=== PATIENT | male | born 1930 | race Caucasian/White ===

== ENCOUNTER → 2016-08-04 | Outpatient (CLI) | payer MEDICARE, BC ==
[2016-08-04 07:05] LABS: BASOPHILS % (AUTO) 0.1 % (0-2); EOSINOPHILS # (AUTO) 0.4 T/MM3 (0-0.5); EOSINOPHILS % (AUTO) 5.8 % (0-4); HCT - HEMATOCRIT 34.9 % (41-53); HGB - HEMOGLOBIN 11.9 GM/DL (13.5-17.5); LYMPHOCYTES # (AUTO) 0.9 T/MM3 (1-4.8); LYMPHOCYTES % (AUTO) 12.1 % (23-45); MEAN CORPUSCULAR HGB 36.5 UUG (26-34); MEAN CORPUSCULAR HGB CONC(MCHC 34.1 GM/DL (31-37); MEAN CORPUSCULAR VOLUME 107.1 UM3 (80-100); MEAN PLATELET VOLUME 10.4 UM3 (9.4-12.4); MONOCYTES # (AUTO) 0.5 T/MM3 (0-0.8); MONOCYTES % (AUTO) 7.2 % (0-9.0); NEUTROPHILS #(AUTO)-ABSOLUTE 5.3 T/MM3 (1.8-7.7); NEUTROPHILS % (AUTO) 74.8 % (33-66); RED BLOOD COUNT 3.26 M/MM3 (4.50-5.90); WBC - WHITE BLOOD COUNT 7.1 T/MM3 (4.5-11.0)
[2016-08-04 07:15] LABS: ANION GAP 10 MEQ/L (5-15); BUN/CREATININE RATIO 26 RATIO (6-26); CALCIUM 9.3 MG/DL (8.4-10.2); CHLORIDE 100 MEQ/L (98-107); CO2 - CARBON DIOXIDE 31 MEQ/L (22-30); GLOMERULAR FILTRATION RATE 71; GLUCOSE 144 MG/DL (75-110); POTASSIUM 4.2 MEQ/L (3.6-5); SODIUM 141 MEQ/L (134-144)
[2016-08-04 07:23] LABS: PROBNP 1100 PG/ML (0-175)
[2016-08-04 10:28] LABS: BLOOD, URINE NEGATIVE (NEGATIVE); COLOR,URINE YELLOW (YELLOW); LEUKOCYTE ESTERASE ,URINE NEGATIVE (NEGATIVE); NITRITE,URINE POSITIVE (NEGATIVE); UROBILINOGEN,URINE 0.2 EU/DL (NORMAL)
[2016-08-04 11:04] LABS: WBC,URINE NONE SEEN /HPF (0-5)
[2016-08-04 11:05] LABS: BACTERIA,URINE 3+ (NEGATIVE); RBC,URINE NONE SEEN /HPF (0-3)
== END ==
LOC: LABNH.PM 00:47
PROVIDERS: ATTEND Family Medicine
DX: I10 Essential (primary) hypertension (principal); R53.1 Weakness; I25.10 Atherosclerotic heart disease of native coronary artery without angina pectoris; N39.0 Urinary tract infection, site not specified
CPT/HCPCS: 36415; 80048; 81001; 83880; 85025; 87086; P9604; 87077; 87186

== ENCOUNTER → 2016-08-11 | Outpatient (CLI) | payer MEDICARE, BC ==
[2016-08-13 02:13] LABS: LDL CHOLESTEROL,CALCULATED 70.2 (66-159); VLDL CHOLESTEROL 12.8 MG/DL (0-28)
== END ==
LOC: LABNH.PM 01:32
PROVIDERS: ATTEND Internal Medicine Cardiovascular Disease
DX: E78.5 Hyperlipidemia, unspecified (principal)
CPT/HCPCS: 36415; 80061; P9604

== ENCOUNTER → 2016-08-24 | Outpatient (CLI) | payer MEDICARE, BC ==
[~2016-08-24] MED LIST: ASPI-557 PO; IBUP-1724 PO; LANS15TA3 PO; NICO1PAT49 TOP; OXYC-541 PO; OXYC5CAP3 PO; POLY255P2 PO; THYR60TA2 PO
[2016-08-25 15:09] LABS: BLOOD, URINE NEGATIVE (NEGATIVE); COLOR,URINE YELLOW (YELLOW); LEUKOCYTE ESTERASE ,URINE NEGATIVE (NEGATIVE); NITRITE,URINE NEGATIVE (NEGATIVE); UROBILINOGEN,URINE 0.2 EU/DL (NORMAL)
[2016-08-25 15:19] LABS: BACTERIA,URINE NONE SEEN (NEGATIVE); RBC,URINE 0-1 /HPF (0-3); WBC,URINE 0-1 /HPF (0-5)
[2016-08-25 15:20] LABS: CALCIUM OXALATE CRYSTALS,UR FEW
== END ==
LOC: LABN.PM 23:59
PROVIDERS: ATTEND Family Medicine
DX: N39.0 Urinary tract infection, site not specified (principal)
CPT/HCPCS: 81001; 87086

== ENCOUNTER 2016-08-26 06:38 | Inpatient (IN) | payer MEDICARE, BC ==
[~2016-08-26] VITALS: Ht 172.7 cm; Wt 64.5 kg
[2016-08-26] VITALS (13 sets, daily range): BP systolic 115–199; BP diastolic 55–93; PULSE 56–101; RESP 16–41; TEMP 98.2–99.8; O2SAT 95–96; Ht 172.7 cm; Wt 64.5 kg
--- NOTE | 2016-08-26 07:01 | NUR ---
DR SWEENEY IN
[2016-08-26] MEDS ORDERED: NICO1PAT49 TOP (07:05)
[2016-08-26] MEDS ORDERED: ASPI-557 PO (07:05)
[2016-08-26] MEDS ORDERED: IBUP-1724 PO (07:05)
[2016-08-26] MEDS ORDERED: POLY255P2 PO (07:05)
--- NOTE | 2016-08-26 07:10 | ERPDOC ---
Departure Impression Impression Referrals: ALTON PARRY MD (Family) Mental Status: Alert, Forgetful, Oriented HPI - Fall/Injury General Chief Complaint: Fall Stated Complaint: FALL, NECK PAIN Time Seen by Provider: 07:00 HPI - Fall/Injury Initial Comments 86-year-old gentleman presents having fallen at the detention this morning. His story is that he must of tangled up in his sheets and next thing he knew he was laying on the floor. He states he doesn't remember what happened for sure. He is brought and c-collar by EMS. Manually cleared and able to move his neck without pain. His daughter came and stated that he actually hit his head, seemed to pass out, and was vomiting. This certainly makes more sense as to why he was transported. He denies a headache, does have a scrape on top of his head. No other concerns or issues at this time. He is quite a character, hard to know when to take him seriously. Allergies: Coded Allergies: No Known Allergies (Unverified , 08/26/16) Past History Past Medical History Pt denies signifigant PMH Surgical History Denies Surgeries Review of Systems ENMT Balance: see HPI GI Upper Abdomen: see HPI Musculoskeletal General: see HPI Neurological General: see HPI All other Systems All Other Systems: Reviewed and Negative Physical Exam General General Nourishment: well nourished, well developed, appears stated age General Body Habitus: well groomed Vitals and Pain First Documented Vital Signs Date Time Temp Pulse Resp B/P Pulse Ox O2 Delivery O2 Flow Rate FiO2 08/26/16 06:42 97.9 104 16 126/61 91 Room Air Weight: Kilograms: 64.400 Height (feet): 5 Height (inches): 7.00 Triage Pain Scale: Normal Exams: Chest/Resp: Clear all jeffers, with good airflow, and symmetry bilaterally CV: Regular rate and rhythm, without murmur or gallop, Pulses 2+ all extremities, capillary refill, <2 seconds all ext., no pedal edema noted Abdomen: Bowel sounds positive, non-distended, no hepatosplenomegaly, masses or bruits noted Neurologic: Patient is alert, cranial nerves, motor/sensory/cerebellar, exams w /o gross deficits, to observation Psychiatric: Patient exhibits, appropriate attention, emotion and affect ENMT (brief) Comments Pupils equal and reactive to light, EOMI. No blood in external auditory canals. Oral pharynx appears normal, poor dentition. Neck nontender, c-collar removed, full range of motion passive and active without pain. Abdomen (brief) Comments Bowel sounds all 4 quadrants, soft abdomen, mild tenderness midepigastric. Differential Diagnoses Considering: Abrasion, Concussion, Contusion, CVA, UTI DAPHNEY SWEENEY MD Aug 26, 2016 07:10
[2016-08-26] MEDS ORDERED: THYR60TA2 PO (07:17)
[2016-08-26] MEDS ORDERED: OXYC5CAP3 PO (07:17)
[2016-08-26] MEDS ORDERED: LANS15TA3 PO (07:17)
[2016-08-26] MEDS ORDERED: OXYC-541 PO (07:18)
--- NOTE | 2016-08-26 07:19 | NUR ---
FAMILY DAUGHTER AT BEDSIDE. PT WAS VOMITING AFTER FALL.
--- NOTE | 2016-08-26 07:29 | NUR ---
TO CT PER CART
--- NOTE | 2016-08-26 07:37 | NUR ---
RETURNED FROM [facility]
[2016-08-26 07:39] LABS: HCT - HEMATOCRIT 32.8 % (41-53); HGB - HEMOGLOBIN 11.3 GM/DL (13.5-17.5); MEAN CORPUSCULAR HGB 36.9 UUG (26-34); MEAN CORPUSCULAR HGB CONC(MCHC 34.5 GM/DL (31-37); MEAN CORPUSCULAR VOLUME 107.2 UM3 (80-100); MEAN PLATELET VOLUME 9.9 UM3 (9.4-12.4); RED BLOOD COUNT 3.06 M/MM3 (4.50-5.90)
--- NOTE | 2016-08-26 07:56 | DI ---
Indication: ITS.REASON: loss of consciousness PROCEDURE: CT HEAD W/O CONTRAST: Encounter: Initial Comparison: None Technique: Axial CT images through the head were performed without contrast. Iterative Reconstruction dose reducing technique was utilized. FINDINGS: The ventricles are significantly dilated, disproportionate to the mild atrophy present. There is no evidence of acute intracranial hemorrhage, midline displacement, or mass effect. There are numerous areas of low attenuation in the white matter which most likely represent changes of chronic microvascular ischemia. The CT attenuation of the brain parenchyma is otherwise normal within the cerebellum, brain stem, and cerebral hemispheres. The tympanic cavities and mastoid air cells are free of appreciable disease. There are no definite fractures of the skull base, calvarium, or visualized portion of the midface. IMPRESSION: 1. No CT evidence of acute traumatic intracranial injury. 2. Disproportionate ventricular dilatation raising concern for normal pressure hydrocephalus. .
--- NOTE | 2016-08-26 07:59 | DI ---
Indication: ITS.REASON: neck pain post-fall PROCEDURE: CT CERVICAL SPINE W/O CONTRAST: Encounter: Initial Comparison: None Technique: Axial CT images through the cervical spine were performed without contrast. Coronal and sagittal reformatted images were also obtained. Automated Exposure Control and Iterative Reconstruction dose reducing techniques were utilized. FINDINGS: The alignment of the cervical spine is straightened. Multilevel degenerative changes are present. There is no evidence of acute fracture or subluxation of the cervical spine. The atlantoaxial articulation, dens, and upper cervical spine demonstrate no subluxation. The paraspinal soft tissues and spinal canal appear unremarkable. IMPRESSION: No acute traumatic abnormality of the cervical spine. .
[2016-08-26 08:03] LABS: BLOOD, URINE 3+ (NEGATIVE); COLOR,URINE YELLOW (YELLOW); LEUKOCYTE ESTERASE ,URINE NEGATIVE (NEGATIVE); NITRITE,URINE NEGATIVE (NEGATIVE)
[2016-08-26 08:07] LABS: ALBUMIN/GLOBULIN RATIO 1.3 RATIO (1.1-2.2); ALKALINE PHOSPHATASE 59 U/L (38-126); ALT (SGPT) 26 U/L (21-72); ANION GAP 16 MEQ/L (5-15); AST (SGOT) 36 U/L (17-59); BUN/CREATININE RATIO 30 RATIO (6-26); CALCIUM 9.6 MG/DL (8.4-10.2); CHLORIDE 106 MEQ/L (98-107); CO2 - CARBON DIOXIDE 24 MEQ/L (22-30); CREATININE 1.4 MG/DL (0.8-1.5); GLOMERULAR FILTRATION RATE 48; GLUCOSE 78 MG/DL (75-110); POTASSIUM 4.3 MEQ/L (3.6-5); SODIUM 146 MEQ/L (134-144)
--- NOTE | 2016-08-26 08:16 | NUR ---
TO [facility] PER CART
[2016-08-26 08:17] LABS: LYMPHOCYTES # (MANUAL) 0.1 T/MM3 (1-4.8); MONOCYTES # (MANUAL) 0.6 T/MM3 (0-0.8); NEUTROPHILS #(MANUAL)-ABSOLUTE 10.3 T/MM3 (1.8-7.7); TOTAL CELLS COUNTED 100 %
[2016-08-26 08:23] LABS: PROLACTIN 9.5 NG/ML
--- NOTE | 2016-08-26 08:34 | NUR ---
RETURNED FROM [facility]
[2016-08-26 08:35] LABS: BACTERIA,URINE 1+ (NEGATIVE); WBC,URINE NONE SEEN /HPF (0-5)
--- NOTE | 2016-08-26 08:40 | NUR ---
MONITOR SR. VS STABLE. PT RESTS COMFORTABLY
--- NOTE | 2016-08-26 08:40 | NUR ---
DR SWEENEY IN
--- NOTE | 2016-08-26 08:41 | DI ---
Indication: ITS.REASON: midepigastric pain PROCEDURE: KUB W/UPRIGHT: Encounter: Initial Comparison: None Findings: The visualized lung bases are clear. There is no free air on the upright view. The bowel gas pattern is nonobstructive and nonspecific. Gas is seen in nondilated small and large bowel to the level of the rectum. Moderate to large amount of stool is seen throughout the colon. Chronic appearing L4 compression fracture. Aortoiliac stent. Cholecystectomy clips. Impression: Nonobstructive nonspecific bowel gas pattern. .
--- NOTE | 2016-08-26 08:42 | DI ---
INDICATION: ITS.REASON: fall PROCEDURE: CHEST 2-VIEWS UPRIGHT (PA \T\ LAT) Encounter: Initial COMPARISON: None FINDINGS: The lungs are clear without evidence of focal abnormal airspace opacity. There is no pleural effusion or pneumothorax. The heart size, mediastinal contours and pulmonary vascularity are within normal limits. Widened right AC joint could be due to old trauma or prior surgery. IMPRESSION: No acute cardiopulmonary disease. .
--- NOTE | 2016-08-26 09:04 | NUR ---
DR SWEENEY IN
--- NOTE | 2016-08-26 09:15 | NUR ---
REPORT TO SINAN OSBORNE
--- NOTE | 2016-08-26 09:30 | NUR ---
PAIGE CULVER IN TO SEE PT
--- NOTE | 2016-08-26 09:40 | NUR ---
TRANSPORT PER CART TO 122. SINAN OSBORNE ASSUMED PT CARE. PT TOLERATED ACTIVITY WELL. MONITOR & VS STABLE
--- NOTE | 2016-08-26 09:40 | NUR ---
Admit Pt arrived to floor at this time. transferred to bed x2 assist from ED cart. Pt denies pain at this time.
[2016-08-26] MEDS: ASPIRIN 81 MG CHEWABLE TABLET PO SCH (10:00)
[2016-08-26] MEDS ORDERED: SALINE FLUSH 10ml SYRINGE ONE (10:08)
[2016-08-26] MEDS ORDERED: IOHEXOL 350 MG/ML 100ml INJECTION ONE (10:08)
[2016-08-26] MEDS ORDERED: NORMAL SALINE 100 ML ONE (10:08)
--- NOTE | 2016-08-26 10:17 | HPPDOC ---
PAIGE KAUR V CARRIER LOADER 08/26/16 0948: HPI - Adult Date DATE: 08/26/16 TIME: 09:40 General Chief Complaint: Fall from bed, Elevated Troponin History of Present Illness Patient is a 86 yr old male who resides at [facility]. It is reported that he fell out of bed this morning and struck his head. Following this he began vomiting and was sent to the ER for further evaluation and treatment. Other evaluation included laboratory studies and radiology studies were performed. WBC count was found to be slightly about 12.0, RBCs 3.06, hemoglobin 11.3, hematocrit 32.8, platelet count 151, neutrophils 86% with a percent bandemia. Sodium is 146, potassium 4.3, BUN 42, creatinine 1.4. D-dimer was found to be elevated at 3393. Initial troponin was elevated at 0.306. Twelve- lead EKG was performed showing some ST changes with questionable depression. A urinalysis was obtained showing 1+ protein, 3+ blood with 1+ bacteria. KUB and chest x-ray were both unremarkable. CT scan of the head did show ventricle dilatation, raising concern for normal pressure hydrocephalus. A CT of the cervical spine was negative for acute fracture. Vital signs reviewed, temperature 97.5, heart rate 104, respiration rate 16, blood pressure 126/61, room air saturations 95%. Review advanced directives and patient does have a active do not resuscitate. Past Medical History Past Medical History History of thyroid cancer Hypertension- not currently on medications Chronic leg pain GERD Former tobacco dependence Surgical History Patient's Surgical History: Left lower extremity surgery, (plates and screws post trauma) Thyroidectomy Current Medications Home Meds Reported Medications Oxycodone HCl/Acetaminophen (Oxycodone-Acetaminophen 5-325) 5-325 Tablet, 1 TAB PO TID Y for PAIN, TAB 08/26/16 Lansoprazole (Prevacid) 15 Mg Tab.rap.dr, 1 TAB PO DAILY, #30 TAB 2 Refills 08/26/16 Thyroid,Pork (Allison Thyroid) 60 Mg Tablet, 1 TAB PO DAILY, #30 TAB 5 Refills 08/26/16 Polyethylene Glycol 3350 (Polyethylene Glycol 3350) 255 Gm Powder, 8.5 GM PO DAILY, #527 GM 08/26/16 Ibuprofen (Ibuprofen) 200 Mg Tablet, 3 TAB PO BID Y for PAIN, TAB 08/26/16 Aspirin (Aspir 81) 81 Mg Tablet.dr, 1 TAB PO DAILY, #30 TAB 5 Refills 08/26/16 Nicotine (Nicoderm Cq) 1 Each Patch.td24, 1 PATCH TOP DAILY, #14 PATCH 08/26/16 Allergies: Coded Allergies: No Known Allergies (Unverified , 08/26/16) Family History Family History: Father at a young age of a farm accident Mother history of hypertension Social History Smoking Status: Former smoker Housing: half-way ([facility]) Advance Directives: Yes DNR, Yes DPOA for Healthcare Only (daughter) Social History Comments PCP Dr. Garland Review of Systems Unable to Obtain Comments Patient denies entire review of systems All Other Systems All Other Systems: Reviewed (remainder of 10-point ROS Neg.) Physical Exam General General Nourishment: well nourished, well developed Vital Signs Vital Signs Date Time Temp Pulse Resp B/P Pulse Ox O2 Delivery O2 Flow Rate FiO2 08/26/16 08:45 97.5 94 16 167/81 96 Room Air Height (Feet): 5 Height (Inches): 7.00 Eyes Brief: FOUND: EOMI Respiratory Brief: FOUND: clear all jeffers, equal bilaterally, NOT FOUND: wheezes Cardiovascular (brief) Cardiac Brief: FOUND: regular rate, regular rhythm, NOT FOUND: murmur, pedal edema Abdomen (brief) Abdominal Brief: FOUND: BS normo active x4, pulsatile mass (epigastric pulse noted), soft Integumentary (brief) Integumentary Brief: FOUND: dry, pink, warm Neurologic (brief) Neurological Brief: FOUND: cranial 2-12 intact Neurologic RN Documented GCS Eye Opening: (4)Spontaneous Verbal: (4)Confused Motor: (6)Obeys Commands Total: Psychiatric (brief) FOUND: alert, attentive, normal affect, oriented Laboratory Laboratory Tests Test 08/26/16 07:27 White Blood Count 12.0T/MM3 Red Blood Count 3.06M/MM3 Hemoglobin 11.3GM/DL Hematocrit 32.8% Mean Corpuscular Volume 107.2UM3 Mean Corpuscular Hemoglobin 36.9UUG Mean Corpuscular Hemoglobin Concent 34.5GM/DL RDW Standard Deviation 48.2FL Platelet Count 151T/MM3 Mean Platelet Volume 9.9UM3 Immature Granulocyte % (Auto) % Neutrophils (%) (Auto) % Lymphocytes (%) (Auto) % Monocytes (%) (Auto) % Eosinophils (%) (Auto) % Basophils (%) (Auto) % Absolute Immature Granulocyte (auto T/MM3 Absolute Neutrophils (auto) T/MM3 Absolute Lymphocytes (auto) T/MM3 Absolute Monocytes (auto) T/MM3 Absolute Eosinophils (auto) T/MM3 Absolute Basophils (auto) T/MM3 Neutrophils % (Manual) 86.0% Band Neutrophils % 8.0% Lymphocytes % (Manual) 1.0% Monocytes % (Manual) 5.0% Absolute Neutrophils (Manual) 10.3T/MM3 Band Neutrophils # 1.0T/MM3 Lymphocytes # (Manual) 0.1T/MM3 Monocytes # (Manual) 0.6T/MM3 Macrocytosis 1+ Red Cell Morphology Comment Abnormal D-Dimer 3393NG/ML Urine Collection Type Voided-not cc-midstr Urine Color Yellow Urine Turbidity Clear Urine pH 5.5 Urine Specific [place] >=1.030 Urine Protein 1+ Urine Glucose (UA) Negative Urine Ketones Negative Urine Blood 3+ Urine Nitrite Negative Urine Bilirubin Negative Urine Urobilinogen 1.0EU/DL Urine Leukocyte Esterase Negative Urine RBC 1-3/HPF Urine WBC None seen/HPF Urine Amorphous Urates Moderate Urine Bacteria 1+ Urine Hyaline Casts 5-10/LPF Urine Culture Indicated Cult not indicated Turbidity < 20 Sodium Level 146MEQ/L Potassium Level 4.3MEQ/L Chloride Level 106MEQ/L Carbon Dioxide Level 24MEQ/L Anion Gap 16MEQ/L Blood Urea Nitrogen 42.0MG/DL Creatinine 1.4MG/DL Glomerular Filtration Rate Calc 48 BUN/Creatinine Ratio 30RATIO Glucose Level 78MG/DL Calculated Osmolality 291MOSM/KG Calcium Level 9.6MG/DL Total Bilirubin 1.00MG/DL Icterus Index < 2 Aspartate Amino Transf (AST/SGOT) 36U/L Alanine Aminotransferase (ALT/SGPT) 26U/L Alkaline Phosphatase 59U/L Troponin I 0.306ng/ml Total Protein 7.0G/DL Albumin 4.0G/DL Globulin 3.0G/DL Albumin/Globulin Ratio 1.3RATIO Prolactin 9.5NG/ML Chemistry Specimen Hemolysis < 15 Assessment & Plan Problems: (1) Elevated troponin Status: Acute Assessment & Plan: Present on admission (2) Leukocytosis Status: Acute Qualifiers: Leukocytosis type: bandemia Qualified Codes: D72.825 - Bandemia (3) Elevated d-dimer Status: Acute (4) Fall Status: Acute Qualifiers: Encounter type: initial encounter Qualified Codes: W19.XXXA - Unspecified fall, initial encounter (5) HTN (hypertension) Status: Chronic (6) Hypernatremia Status: Acute Assessment & Plan: Present on admission (7) GERD (gastroesophageal reflux disease) Status: Chronic (8) History of thyroid cancer Status: Resolved (9) Former tobacco use Status: Resolved Plan/Intensity of Service Admit patient to outpatient observation under the care of Dr. Antonio for elevated troponin, elevated d-dimer and fall Monitor patient on cardiac telemetry. Obtain serial troponin x3 Consult placed to Dr Ayala for further cardiac evaluation and treatment. Keep patient NPO at this time as he may require heart cath. 1/2 NS at 100 ml/hr for hydration Will obtain CT Aorta study to rule out pulmonary emboli and aortic dissection Regards, leukocytosis, will continue to monitor. No clear evidence of infectious process currently SCDs to bilateral lower ext for DVT prophylaxis Did discuss advanced directives with patient and daughter, he does wish to be a do not resuscitate Will discuss further plan of care with attending, Dr. Antonio DVT Prophylaxis: SCD'S Code Status DNR Hospital Course Summary Disclaimer The hospital course summary below is not to be considered part of the above Progress Note. Hospital Course Summary Admit patient to outpatient observation under the care of Dr. Antonio for elevated troponin, elevated d-dimer and fall Monitor patient on cardiac telemetry. Obtain serial troponin x3 Consult placed to Dr Ayala for further cardiac evaluation and treatment. Keep patient NPO at this time as he may require heart cath. 1/2 NS at 100 ml/hr for hydration Will obtain CT Aorta study to rule out pulmonary emboli and aortic dissection Regards, leukocytosis, will continue to monitor. No clear evidence of infectious process currently SCDs to bilateral lower ext for DVT prophylaxis Did discuss advanced directives with patient and daughter, he does wish to be a do not resuscitate Will discuss further plan of care with attending, JOCE Ledesma MD 08/26/16 1772: Past Medical History Current Medications Home Meds Reported Medications Oxycodone HCl/Acetaminophen (Oxycodone-Acetaminophen 5-325) 5-325 Tablet, 1 TAB PO TID Y for PAIN, TAB 08/26/16 Lansoprazole (Prevacid) 15 Mg Tab.rap., 1 TAB PO DAILY, #30 TAB 2 Refills 08/26/16 Thyroid,Pork (Allison Thyroid) 60 Mg Tablet, 1 TAB PO DAILY, #30 TAB 5 Refills 08/26/16 Polyethylene Glycol 3350 (Polyethylene Glycol 3350) 255 Gm Powder, 8.5 GM PO DAILY, #527 GM 08/26/16 Ibuprofen (Ibuprofen) 200 Mg Tablet, 3 TAB PO BID Y for PAIN, TAB 08/26/16 Aspirin (Aspir 81) 81 Mg Tablet., 1 TAB PO DAILY, #30 TAB 5 Refills 08/26/16 Nicotine (Nicoderm Cq) 1 Each Patch.td24, 1 PATCH TOP DAILY, #14 PATCH 08/26/16 Allergies: Coded Allergies: No Known Allergies (Unverified , 08/26/16) Assessment & Plan Problems: (1) Non-ST elevation NV (NSTEMI) (2) Fall Status: Acute Qualifiers: Encounter type: initial encounter Qualified Codes: W19.XXXA - Unspecified fall, initial encounter (3) Cerebral ventriculomegaly Assessment & Plan: Disproportionate ventricular dilatation-questionable NPH (4) Hypernatremia Status: Acute Assessment & Plan: Present on admission (5) Leukocytosis Status: Acute Qualifiers: Leukocytosis type: bandemia Qualified Codes: D72.825 - Bandemia (6) Elevated d-dimer Status: Acute (7) HTN (hypertension) Status: Chronic (8) GERD (gastroesophageal reflux disease) Status: Chronic (9) History of thyroid cancer Status: Resolved (10) Former tobacco use Status: Resolved (11) Chronic kidney disease Status: Chronic Assessment I have independently evaluated and examined this patient. I reviewed the chart, the patient's history, and the CARRIER LOADER's documented findings as above. We discussed and formulated the assessment and plan as above with additions as below: Mr. Patiño presents after a fall at his half-way attributed to getting tangled in bed sheets although at the time my assessment I could not elicit any history from the patient clarifying what led to the fall leading to abrasions on the top of his head and bruising on both forearms and both knees. The patient is alert and pleasant but hard of hearing and forgetful. His daughter reports that confusion has worsened recently. Patient describes difficulty with nocturnal urinary incontinence but denies difficulty with incontinence while ambulating or during the daytime. No history of chest pain or palpitations can be elicited. On examination the patient is pleasantly confused and oriented only to name. He moves all extremities to command. Cardiac exam is regular with S1-S2 and a very soft systolic murmur at the right upper sternal border. Breath sounds clear with good airflow Abdomen benign. Multiple x-rays reviewed including CTA and abdomen CT-no PE or dissection/acute pathology. Chest [id number]. CT head without evidence of acute event but significantly enlarged ventricles. EKG reviewed with Dr. Ayala and compared to prior EKG obtained in the office-ST depression in the anterolateral leads. Laboratory data with mild bump in creatinine/sodium from recent values; hemoglobin stable. Non-ST elevation NV-unclear whether this triggered the patient's fall or was a result of the fall. Cannot exclude arrhythmia although history does not help identify order of events. Will benefit from neurological evaluation after acute cardiac condition stabilized. Patient/daughter (DPOA) have elected to proceed with cardiac catheterization following hydration. Statin, aspirin, beta amy, and heparin initiated Plan/Intensity of Service Discussed with Dr. Ayala, multiple x-rays reviewed by myself, EKG reviewed by myself and with Dr. Ayala. Old records reviewed. Current laboratory data reviewed. DVT Prophylaxis: Heparin PAIGE Méndez APRN Aug 26, 2016 09:48 JOCE ANTONIO MD Aug 26, 2016 19:02
[2016-08-26] MEDS: 1/2 NS 1,000 ML IV SCH ×2 (10:24→20:09)
--- NOTE | 2016-08-26 12:46 | DI ---
Indication: ITS.REASON: Elevated DD, Aorta eval PROCEDURE: CTA PE/CTA AORTA: Encounter: Initial Comparison: Chest x-ray from today Technique: Axial CT angiographic imaging of the chest, abdomen and pelvis was performed before and after the administration of intravenous contrast. Coronal and sagittal MIP reconstructed images were created and reviewed. Three-dimensional surface shaded volume rendered imaging of the aorta and arterial vasculature was created by the technologist on a dedicated workstation under the direction of the interpreting radiologist and reviewed. CT angiography of the chest was performed in the pulmonary angiographic phase as well with coronal and sagittal MIP reconstructed images. Automated Exposure Control and Iterative Reconstruction dose reducing techniques were utilized. Contrast: 120 mL Omnipaque 350 Findings: CT angiogram of the chest for PE Pulmonary arteries: Exam is diagnostic to the subsegmental pulmonary arterial level. No filling defects identified to confirm a pulmonary embolus. Other findings: Subpleural fibrosis. There is mild dependent atelectatic change without focal lobar consolidative pneumonia. No pneumothorax or pleural effusion. The central airways are patent. No axillary or mediastinal lymphadenopathy. Heart is mildly enlarged without pericardial effusion. Three vessel coronary artery calcifications. Impression: No pulmonary embolus. Lower lobe atelectasis. CT angiogram of the chest for aorta with and without contrast: Findings: Noncontrast imaging shows no evidence of intramural hematoma. Three vessel coronary artery atherosclerotic plaque is seen along with scattered atherosclerotic plaque in the aorta. Postcontrast imaging shows no evidence of thoracic aortic aneurysm or dissection. The great vessel origins are widely patent. Please see the CT angiogram for PE report for additional details. Impression: No evidence of thoracic aortic aneurysm or acute aortic syndrome. CT angiogram of the abdomen and pelvis with and without contrast: Findings: Previously repaired abdominal aortic aneurysm with an aortobiiliac stent graft in place. There is no evidence of endoleak identified. There is an aneurysm of the left internal iliac artery seen on axial image #165 measuring 1.9 cm in maximal diameter. This is partially thrombosed. The visualized internal and external iliac arteries are patent. There is moderate stenosis of both internal iliac arteries near their origins. The aortic aneurysm starts near the level of the renal arteries measuring up to 3.5 cm in diameter. The arterial phase liver is unremarkable. The spleen, pancreas and adrenal glands are within normal limits. Bilateral renal cortical thinning and scarring. The celiac is widely patent. Hepatic arterial anatomy is conventional. SMA is widely patent. The MARQUISE is occluded which is typical. Portal venous phase imaging shows no enhancing liver masses or bile duct dilatation. Tiny possible superior right hepatic cyst. The gallbladder is surgically absent. The spleen, pancreas, adrenal glands and kidneys show no new findings of significance. The small and large bowel show no evidence of obstruction. There is extensive sigmoid diverticulosis without evidence of acute diverticulitis. Bone windows show degenerative changes in the spine and pelvis. Chronic appearing compression fractures of T12, L2 and L4. 3-D imaging shows no evidence of stent component fracture or failure. Impression: 1. 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 2. 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 Recommend comparison with patient's presumed outside prior imaging studies. 3. No acute disease process seen in the abdomen or pelvis. .
--- NOTE | 2016-08-26 14:44 | CONSPD ---
Consultation Info Date DATE: 08/26/16 TIME: 14:14 Reason for Consultation: elevated troponin HPI - Adult Date DATE: 08/26/16 TIME: 14:14 General Date of Admission Date of Admission: Aug 26, 2016 at 09:02 Chief Complaint: Fall from bed, Elevated Troponin History of Present Illness 86 yo wm known to me , presented to ED today after falling out of bed . staff told hao that he may have tangled up in sheets. he hit his head. brought to ED found to have abnl EKG and trop. elevated BUN. Hgb 11. head CT neg. elevated D Dimer. CTA chest result s pend. he s receining IVF. He doesn't remember anything about today and still appears confused. pt denies cp dyspnea or palpitations. daughter rendorses the same . she checks on him daily at OR. he hasn't been eating or drinking well for 2-3 days. no fever or chills. she says his dizziness has resolved after stopping his BP meds 2 mo ago. since he moved in town 2 mo ago to [place] , he s been getting around in a scooter due to chronic back pain and weakness. no known CAD . Past Medical History Past Medical History Metabolic: hypertension, DENIES: diabetes Cardiac: CAD, aortic aneurysm (repair) Respiratory: COPD Musculoskeletal: back pain Current Medications Home Meds Reported Medications Oxycodone HCl/Acetaminophen (Oxycodone-Acetaminophen 5-325) 5-325 Tablet, 1 TAB PO TID Y for PAIN, TAB 08/26/16 Lansoprazole (Prevacid) 15 Mg Tab.rap., 1 TAB PO DAILY, #30 TAB 2 Refills 08/26/16 Thyroid,Pork ([place] Thyroid) 60 Mg Tablet, 1 TAB PO DAILY, #30 TAB 5 Refills 08/26/16 Polyethylene Glycol 3350 (Polyethylene Glycol 3350) 255 Gm Powder, 8.5 GM PO DAILY, #527 GM 08/26/16 Ibuprofen (Ibuprofen) 200 Mg Tablet, 3 TAB PO BID Y for PAIN, TAB 08/26/16 Aspirin (Aspir 81) 81 Mg Tablet., 1 TAB PO DAILY, #30 TAB 5 Refills 08/26/16 Nicotine (Nicoderm Cq) 1 Each Patch.td24, 1 PATCH TOP DAILY, #14 PATCH 08/26/16 Allergies: Coded Allergies: No Known Allergies (Unverified , 08/26/16) Family History FOUND: cancer, NOT FOUND: CAD, [place] Vaccines 2016 No DAUGHTER SAYS IT IS UPTODATE UNKNOWN Social History Smoking Status: Former smoker Housing: pen[facility]entiary ([facility]) Advance Directives: Yes DNR, Yes DPOA for Healthcare Only (daughter) Review of Systems Constitutional: DENIES: weight gain, weight loss Eyes General: REPORTS: see HPI Vision: DENIES: double vision ENMT Nose: NOT FOUND: nosebleeds Cardiovascular DENIES: orthopnea Rhythm/Rate: DENIES: palpitations, tachycardia Pulmonary Respiratory: DENIES: cough, dyspnea, pleuritic chest pain GI Upper Abdomen: vomiting, DENIES: pain Lower Abdomen: DENIES: blood in stool, melena Musculoskeletal Lumbar: pain Integumentary Skin: DENIES: rash Neurological General: DENIES: headache, seizures Psychiatric Psychiatric: DENIES: anxiety, memory impairment Endocrine DENIES: heat/cold intolerance Physical Exam General Vital Signs Vital Signs Date Time Temp Pulse Resp B/P Pulse Ox O2 Delivery O2 Flow Rate FiO2 08/26/16 10:09 99 41 197/92 Room Air 08/26/16 09:46 96 08/26/16 09:43 98.2 Height (Feet): 5 Height (Inches): 8.00 ENMT Brief: NOT FOUND: mucosa moist Neck Brief: NOT FOUND: JVD, carotid bruits, thyromegaly Respiratory Brief: FOUND: clear all jeffers, equal bilaterally, symmetrical Cardiovascular (brief) Cardiac Brief: FOUND: gallop (s4), regular rate, regular rhythm, NOT FOUND: murmur Capillary Refill: <2 sec Abdomen (brief) Abdominal Brief: FOUND: BS normo active x4, soft, NOT FOUND: distended, tender Lymphatic (brief) Lymphatic Brief: NOT FOUND: adenopathy Musculoskeletal (brief) Musculoskeletal Brief: NOT FOUND: deformity Integumentary (brief) Integumentary Brief: FOUND: dry, pink, warm Neurologic (brief) Neurological Brief: FOUND: cranial 2-12 intact, motor, NOT FOUND: facial droop , ptosis Neurologic RN Documented GCS Eye Opening: (4)Spontaneous Verbal: (4)Confused Motor: (6)Obeys Commands Total: Psychiatric (brief) FOUND: alert, other (confused) Psychiatric Psychiatric General: FOUND: other (confused) Laboratory Laboratory Tests Test 08/26/16 07:27 08/26/16 13:17 White Blood Count 12.0T/MM3 Red Blood Count 3.06M/MM3 Hemoglobin 11.3GM/DL Hematocrit 32.8% Mean Corpuscular Volume 107.2UM3 Mean Corpuscular Hemoglobin 36.9UUG Mean Corpuscular Hemoglobin Concent 34.5GM/DL RDW Standard Deviation 48.2FL Platelet Count 151T/MM3 Mean Platelet Volume 9.9UM3 Immature Granulocyte % (Auto) % Neutrophils (%) (Auto) % Lymphocytes (%) (Auto) % Monocytes (%) (Auto) % Eosinophils (%) (Auto) % Basophils (%) (Auto) % Absolute Immature Granulocyte (auto T/MM3 Absolute Neutrophils (auto) T/MM3 Absolute Lymphocytes (auto) T/MM3 Absolute Monocytes (auto) T/MM3 Absolute Eosinophils (auto) T/MM3 Absolute Basophils (auto) T/MM3 Neutrophils % (Manual) 86.0% Band Neutrophils % 8.0% Lymphocytes % (Manual) 1.0% Monocytes % (Manual) 5.0% Absolute Neutrophils (Manual) 10.3T/MM3 Band Neutrophils # 1.0T/MM3 Lymphocytes # (Manual) 0.1T/MM3 Monocytes # (Manual) 0.6T/MM3 Macrocytosis 1+ Red Cell Morphology Comment Abnormal D-Dimer 3393NG/ML Urine Collection Type Voided-not cc-midstr Urine Color Yellow Urine Turbidity Clear Urine pH 5.5 Urine Specific [place] >=1.030 Urine Protein 1+ Urine Glucose (UA) Negative Urine Ketones Negative Urine Blood 3+ Urine Nitrite Negative Urine Bilirubin Negative Urine Urobilinogen 1.0EU/DL Urine Leukocyte Esterase Negative Urine RBC 1-3/HPF Urine WBC None seen/HPF Urine Amorphous Urates Moderate Urine Bacteria 1+ Urine Hyaline Casts 5-10/LPF Urine Culture Indicated Cult not indicated Turbidity < 20 Sodium Level 146MEQ/L Potassium Level 4.3MEQ/L Chloride Level 106MEQ/L Carbon Dioxide Level 24MEQ/L Anion Gap 16MEQ/L Blood Urea Nitrogen 42.0MG/DL Creatinine 1.4MG/DL Glomerular Filtration Rate Calc 48 BUN/Creatinine Ratio 30RATIO Glucose Level 78MG/DL Calculated Osmolality 291MOSM/KG Calcium Level 9.6MG/DL Total Bilirubin 1.00MG/DL Icterus Index < 2 Aspartate Amino Transf (AST/SGOT) 36U/L Alanine Aminotransferase (ALT/SGPT) 26U/L Alkaline Phosphatase 59U/L Troponin I 0.306ng/ml Total Protein 7.0G/DL Albumin 4.0G/DL Globulin 3.0G/DL Albumin/Globulin Ratio 1.3RATIO Prolactin 9.5NG/ML Chemistry Specimen Hemolysis < [address] depession v3-6 more than previous ekg 07/2016 LAD. Radiology XR p. Impression/Recommendation Impression elevated troponin /NSTEMI dehydration syncope poss. dehydration , R/O arrythmia with TX AAA repair ,endovacscular. serial trop/ekg echo telemetry agree with IVF due to contarst exposure and elevated Cr. hold off immediate heart cath. pt and family (inclduing granddaughter ,an MD in [place]) want to proceed with heart cath at this point. will plan for wednesday am. AMI Rx . add BB statin Rx full dose IV heaprin due to rising Trop , benefit>risk MAX STEIN MD Aug 26, 2016 14:26
[2016-08-26] MEDS ORDERED: HEPARIN 20,000 units/D5W 500ml 500 ML IV SCH (15:00)
--- NOTE | 2016-08-26 15:13 | NUR ---
HEPARIN CONSULT S: 86 y/o M with NSTEMI; heparin drip for anticoagulation until heart cath (planned for Wednesday, delayed due to elevated SCr). Goal PTT 50-75. O: Date Time PTT Heparin 08/26 1500 --- 3800 unit bolus, gtt @ 760 units/hr (19 mL/hr) Date Platelets (T/mm3) 08/26 151 A/P: Anticoagulation for NSTEMI with heparin; bolus of 3800 units, then start heparin drip at 760 units/hr (12 units/kg/hr). Will obtain a PTT at 2300 and adjust as indicated. Thank you for the consult. Tamiko Sharp, PharmD, BCPS
[2016-08-26] MEDS: ATORVASTATIN 20 MG TABLET PO SCH (20:09)
[2016-08-26 22:38] LABS: ANION GAP 10 MEQ/L (5-15); BUN/CREATININE RATIO 30 RATIO (6-26); CHLORIDE 104 MEQ/L (98-107); CO2 - CARBON DIOXIDE 27 MEQ/L (22-30); CREATININE 1.3 MG/DL (0.8-1.5); GLOMERULAR FILTRATION RATE 53; GLUCOSE 105 MG/DL (75-110); SODIUM 141 MEQ/L (134-144)
--- NOTE | 2016-08-26 23:52 | NUR ---
PHARMACY NOTIFIED PHARMACIST NITIN NOTIFIED OF ELEVATED APTT (43.2) FIDEL NOTIFIED THIS RN TO DO AN IVP OF 1500 UNITS HEPARIN AND TO INCREASE THE HEPARIN IV DRIP TO 22ML/HR. APTT LAB DRAW ORDERED AT 0800. WILL CONTINUE TO MONITOR.
--- NOTE | 2016-08-26 23:55 | NUR ---
HEPARIN CONSULT: 86 y/o M with NSTEMI. Heparin drip for anticoagulation until heart cath (planned for Wednesday, delayed due to elevated SCr). Goal PTT 50-75. Date Time PTT Heparin 08/26 1500 --- 3800 unit bolus, gtt @ 760 units/hr (19 mL/hr) 08/265 43.2 Give another bolus of Heparin 1500 units. Increase drip to 880 units/hr (22ml/hr). Repeat PTT in am at 0800. Thank you
--- NOTE | 2016-08-27 | NUR ---
CONFUSION PT HAS REMOVED HIS TELEMETRY PATCHES ONCE THIS EVENING. DAUGHTER IS IN THE ROOM WITH HIM. THIS RN NOTIFIED BOTH THE PT AND THE DAUGHTER THAT IF IT CONTINUES TO HAPPEN WE WILL MOVE THE PT TO A ROOM CLOSER TO THE NURSES STATION IN ORDER TO BETTER MONITOR HIM. WILL CONTINUE TO MONITOR.
[2016-08-27] MEDS: HEPARIN 20,000 units/D5W 500ml 500 ML IV SCH ×2 (00:15→17:13)
[2016-08-27] MEDS: OXYCODONE/APAP 5mg/325mg TABLET PO PRN ×2 (03:51→10:32)
[2016-08-27 05:06] LABS: BASOPHILS % (AUTO) 0.1 % (0-2); EOSINOPHILS # (AUTO) 0.3 T/MM3 (0-0.5); EOSINOPHILS % (AUTO) 3.6 % (0-4); HGB - HEMOGLOBIN 9.9 GM/DL (13.5-17.5); LYMPHOCYTES % (AUTO) 13.9 % (23-45); MEAN CORPUSCULAR HGB 35.6 UUG (26-34); MEAN CORPUSCULAR VOLUME 107.9 UM3 (80-100); MEAN PLATELET VOLUME 10.3 UM3 (9.4-12.4); MONOCYTES # (AUTO) 0.6 T/MM3 (0-0.8); MONOCYTES % (AUTO) 7.8 % (0-9.0); NEUTROPHILS #(AUTO)-ABSOLUTE 5.4 T/MM3 (1.8-7.7); NEUTROPHILS % (AUTO) 74.6 % (33-66); RED BLOOD COUNT 2.78 M/MM3 (4.50-5.90); WBC - WHITE BLOOD COUNT 7.2 T/MM3 (4.5-11.0)
[2016-08-27] MEDS: 1/2 NS 1,000 ML IV SCH ×2 (05:34→16:16)
[2016-08-27 05:37] LABS: ALBUMIN 3.2 G/DL (3.5-5.0); ANION GAP 9 MEQ/L (5-15); BUN/CREATININE RATIO 28 RATIO (6-26); CALCIUM 8.8 MG/DL (8.4-10.2); CHLORIDE 104 MEQ/L (98-107); CO2 - CARBON DIOXIDE 27 MEQ/L (22-30); CREATININE 1.2 MG/DL (0.8-1.5); GLOMERULAR FILTRATION RATE 58; GLUCOSE 109 MG/DL (75-110); PHOSPHORUS 3.3 MG/DL (2.5-4.5); POTASSIUM 3.8 MEQ/L (3.6-5); SODIUM 140 MEQ/L (134-144)
[2016-08-27] MEDS: LANSOPRAZOLE SOLU-TAB 15 MG TABLET PO SCH (06:39)
[2016-08-27 08:00] VITALS: BP 153/70; PULSE 64; RESP 24; O2SAT 95
--- NOTE | 2016-08-27 08:28 | ECHOF ---
DATE OF STUDY 08/26/2016 INDICATIONS Acute NSTEMI, syncope. TECHNICAL QUALITY Technically good 2D, M-mode, Doppler echocardiographic images were submitted for interpretation. FINDINGS 1. CARDIAC CHAMBERS: All cardiac chamber measurements are normal. Aortic root diameter is normal. 2. LEFT VENTRICLE: Normal wall thickness. Wall motion analysis is abnormal due to posterolateral and inferior wall hypokinesis. Other myocardial segments appear hyperdynamic allowing for a normal left ventricular systolic function with ejection fraction measured 66%. There is grade 1/4 diastolic dysfunction. 3. VALVES: Aortic valve exhibits mild sclerosis. Normal valve opening. Mitral valve exhibits diffuse sclerosis of the anterior leaflet, mild annular calcification posteriorly. Valve excursion is normal. Tricuspid valve structure and motion appear normal. Normal valve excursion. 4. DOPPLER: Mild mitral regurgitation. Moderate tricuspid regurgitation. Very mild pulmonary insufficiency. 5. Central venous pressure is normal. 6. Systolic pulmonary artery pressure is estimated at 59 mmHg. 7. It should be noted that RV appears prominent only on the apical four- chamber view with normal contractility. 8. No evidence of pericardial effusion, intracardiac masses or demonstrable shunts. IMPRESSION 1. Normal cardiac chamber size. 2. Normal LV systolic function. EF 66% with regional wall motion abnormalities of coronary artery disease as described above. 3. Mild diastolic dysfunction. 4. Mild mitral regurgitation. 5. Moderate tricuspid regurgitation. 6. Moderate pulmonary hypertension. 7. Normal central venous pressure. MTDD
[2016-08-27] MEDS: THYROID 30 MG TABLET PO SCH (08:48)
[2016-08-27] MEDS: ASPIRIN 81 MG CHEWABLE TABLET PO SCH (08:48)
[2016-08-27] MEDS: POLYETHYL.GLYCOL 3350 PACKET 17gm PO SCH (08:49)
--- NOTE | 2016-08-27 08:55 | NUR ---
LAB NOTIFIED BARBRA BUCKNER, OF TROPONIN RESULT- 0.501. ALSO NOTIFIED HER OF RHONCHI THROUGHOUT LUNGS. NO NEW ORDERS AT THIS TIME.
--- NOTE | 2016-08-27 09:17 | NUR ---
HEPARIN CONSULT (Recurring): PTT = 40.7 Sec. Platelet count = 128 T/mm3. Heparin bolus of 2,000 units and will adjust Heparin Drip to 1,000 units/hr (25 ml/hr). Will recheck PTT and adjust regimen as needed. Thank you.
--- NOTE | 2016-08-27 11:16 | NUR ---
CM CM IN TO VISIT PATIENT DAUGHTERS ARE AT BEDSIDE. CM EXPLAINED ROLL. CM UPDATED WHITEBOARD AND PROVIDED CONTACT INFORMATION. PT LIVES AT [facility] AND PLANS TO RETURN THERE. PT AND FAMILY AWARE TO CALL CM SHOULD NEEDS ARISE.
[2016-08-27 13:12] VITALS: BP_SYST 116; BP_SYST 118; BP_SYST 122; BP_DIAS 56; BP_DIAS 58; BP_DIAS 60; PULSE 63; RESP 19; O2SAT 94
--- NOTE | 2016-08-27 14:00 | NUR ---
CATH SCHEDULED REC'D CALL FROM Marli DEAN INDUSTRIAL ENGINEERING DIRECTOR RN, THAT PT IS TENTATIVELY SCHEDULED FOR 0930 IN A.M. (08/29/16). WILL SHARE THIS WITH PT AND PT'S FAMILY.
[2016-08-27 14:06] VITALS: PULSE 63; RESP 19; O2SAT 94
[2016-08-27 15:57] VITALS: BP 181/79; PULSE 64; RESP 17; O2SAT 93
--- NOTE | 2016-08-27 16:05 | PNPDOC ---
Subjective Date DATE: 08/27/16 TIME: 15:48 Subjective Mr. Patiño experienced increased confusion overnight per history of his daughters although they no progressive mild confusion for months. He pulled telemetry strips off but did not lose dislodge IV and was not reported to attempt to climb out of bed. No overt agitation was described by nursing. The patient describes some pain in his back and ankle which are chronic but denied dyspnea, chest pain, palpitations, or nausea. He doesn't recall having had breakfast but family members report that he ate well. Objective Vital Signs Vital signs Vital Signs Date Time Temp Pulse Resp B/P Pulse Ox O2 Delivery O2 Flow Rate FiO2 08/27/16 14:06 63 19 94 Room Air 08/27/16 13:12 118/56 116/58 122/60 08/26/16 23:36 99.2 EXAM General-NAD, mild confusion, hearing loss evident, cooperative HEENT-EOMI, conjunctiva clear, oropharynx clear Lungs-respirations nonlabored, breath sounds slightly coarse at the right base, no wheezing Cardiac-regular rhythm, S1-S2 Abd-soft, nontender, bowel sounds present Ext-without edema Neuro-moves extremities well, engineering coordinator strong and equal Psych-oriented 1 Height (Feet): 5 Height (Inches): 8.00 Weight (Kilograms): 63.500 Laboratory Laboratory Laboratory Tests 08/26/16 07:27 08/26/16 22:06 08/27/16 04:15 Magnesium 2.0, phosphorus 3.3, calcium 8.8 Laboratory Tests 08/26/16 07:27 08/27/16 04:15 Troponin 0.3-1.39-1.07-0.5 INR 40.7 EKG Telemetry-sinus rhythm without ectopy Assessment & Plan Problems: (1) Non-ST elevation OK (NSTEMI) (2) Fall Status: Acute Qualifiers: Encounter type: initial encounter Qualified Codes: W19.XXXA - Unspecified fall, initial encounter (3) Cerebral ventriculomegaly Assessment & Plan: Disproportionate ventricular dilatation-questionable NPH (4) Leukocytosis Status: Resolved Qualifiers: Leukocytosis type: bandemia Qualified Codes: D72.825 - Bandemia (5) Elevated d-dimer Status: Acute (6) HTN (hypertension) Status: Chronic (7) Pulmonary hypertension Status: Chronic Assessment & Plan: Moderate TR, PAP 59 on echo 08/26/69 (8) GERD (gastroesophageal reflux disease) Status: Chronic (9) Chronic kidney disease Status: Chronic (10) Macrocytic anemia (11) Hypernatremia Status: Resolved Assessment & Plan: Present on admission (12) History of thyroid cancer Status: Resolved (13) Former tobacco use Status: Resolved Assessment Patient is hemodynamically stable with no significant orthostatic drop on vitals obtained this afternoon. He remains minimally symptomatic and troponin has peaked. No arrhythmias evident. Continue heparin, beta amy, statin, and aspirin. Echocardiogram reveals moderate pulmonary hypertension with moderate TR and mild MR, mild diastolic dysfunction and ejection fraction 66%. Hypokinesis of lateral and inferior muhammad described. Tentatively scheduled for cardiac catheterization tomorrow. Hospitalization and increased confusion in patients with underlying dementia discussed with patient's daughters-increase natural light and getting out of the room recommended. Results of the CT with suggested ventriculomegaly and possible NPH discussed- daughters report they would not pursue surgical intervention and does not wish to pursue further evaluation. Continue physical therapy due to gait instability/weakness. B 12/folic acid pending. Plan/Intensity of Service Discussed with nursing and daughters, telemetry by myself. Current laboratory data reviewed. High-risk medications (heparin drip) in use. DVT Prophylaxis: Heparin drip Code Status Do Not Resuscitate Hospital Course Summary Disclaimer The hospital course summary below is not to be considered part of the above Progress Note. Hospital Course Summary Admit patient to outpatient observation under the care of Dr. Antonio for elevated troponin, elevated d-dimer and fall Monitor patient on cardiac telemetry. Obtain serial troponin x3, EKG with mild anterolateral ST depression. Consult placed to Dr Ayala for further cardiac evaluation and treatment. Keep patient NPO at this time as he may require heart cath. 1/2 NS at 100 ml/hr for hydration Will obtain CTA study to rule out pulmonary emboli and aortic dissection - negative for acute process. Regards, leukocytosis, will continue to monitor. No clear evidence of infectious process currently SCDs to bilateral lower ext for DVT prophylaxis Did discuss advanced directives with patient and daughter, he does wish to be a do not resuscitate 08/27/16 Patient is hemodynamically stable with no significant orthostatic drop on vitals obtained this afternoon. He remains minimally symptomatic and troponin has peaked. No arrhythmias evident. Continue heparin, beta amy, statin, and aspirin. Echocardiogram reveals moderate pulmonary hypertension with moderate TR and mild MR, mild diastolic dysfunction and ejection fraction 66%. Hypokinesis of lateral and inferior muhammad described. Tentatively scheduled for cardiac catheterization tomorrow. Hospitalization and increased confusion in patients with underlying dementia discussed with patient's daughters-increase natural light and getting out of the room recommended. Results of the CT with suggested ventriculomegaly and possible NPH discussed- daughters report they would not pursue surgical intervention and does not wish to pursue further evaluation. Continue physical therapy due to gait instability/weakness. B 12/folic acid pending. JOCE ANTONIO MD Aug 27, 2016 15:52
--- NOTE | 2016-08-27 16:45 | NUR ---
DRY CLEANING MACHINE OPERATOR CONTACT DR. STEIN IN ROOM FOR PT EVAL/ASSMT
--- NOTE | 2016-08-27 16:53 | PNPDOC ---
Subjective Date DATE: 08/27/16 TIME: 16:48 Subjective confused. no reported cp or dyspnea. pt denies the same Objective Vital Signs Vital signs Vital Signs 08/27/16 08/27/16 08/27/16 08/27/16 08:00 13:12 13:12 14:06 Pulse 64 63 63 63 Resp 24 19 19 B/P 153/70 118/56 116/58 122/60 Pulse Ox 95 94 94 O2 Delivery Room Air Room Air Room Air 08/27/16 15:57 Pulse 64 Resp 17 B/P 181/79 Pulse Ox 93 O2 Delivery Room Air Telemetry Rhythm: Sinus Rhythm Height (Feet): 5 Height (Inches): 8.00 Weight (Kilograms): 63.500 General Alert, Disorientated (recognized he was in "a hospital" and no specifics), Confused, No Acute Distress Eyes (Brief) EOMI, PERRL, NOT FOUND: trauma ENMT (Brief) mucosa moist, other (slight superficial laceration on scalp ,unchanged .) Neck (Brief) NOT FOUND: JVD Respiratory (Brief) clear all jeffers, equal bilaterally, other (slightly diminshed in bases B), symmetrical, NOT FOUND: rales, wheezes Cardiovascular (Brief) murmur, regular rate, regular rhythm Capillary Refill: <2 sec Abdomen (Brief) BS normo active x4, soft, NOT FOUND: distended, tender (Brief) NOT FOUND: deformity Extremities (Brief) Extremity : Extremity Finding: warm, NOT FOUND: clubbing, cyanosis, deformity, edema Lymphatic (Brief) NOT FOUND: adenopathy Musculoskeletal (Brief) NOT FOUND: deformity, loss of motion Integumentary (Brief) dry, pink, warm Neurologic (Brief) FOUND: cranial 2-12 intact, motor, NOT FOUND: facial droop, ptosis Psychiatric (Brief) alert (slightly less than last pm), other (confused) Laboratory Laboratory Laboratory Tests 08/26/16 22:06 08/27/16 04:15 Laboratory Tests 08/27/16 04:15 EKG reviewed Assessment & Plan Plan/Intensity of Service NSTEMI fall/poss .syncope dehdraion anemia ,poss. dilutional . stable recheck. HC in am .pt and family in [facility] MAX STEIN MD Aug 27, 2016 16:51
[2016-08-27] MEDS: NORMAL SALINE 1,000 ML IV SCH (17:00)
--- NOTE | 2016-08-27 18:45 | NUR ---
HEPARIN VERIFICATION CALLED PHARMACIST, CHRISTOPHE DOUGLAS, ABOUT PTT RESULTS R/T RATE OF HEPARIN DRIP. HE CONFIRMS THE RATE IS CORRECT FOR TONIGHT, WILL RECHECK PTT IN A.M.
--- NOTE | 2016-08-27 18:47 | NUR ---
SUMMARY PT HAS NOT BEEN OUT OF BED EXCEPT TO STAND AT BEDSIDE FOR OTHOSTATIC BP. WAS ABLE TO HOLD HIMSELF UP WITH LITTLE ASSIST FROM STAFF. PT'S FAMILY REQUESTED PAIN MED IN A.M. PT'S CONFUSION OBVIOUS WHEN ASKED, PRIOR TO ADMINISTRATION @ 1032, TO DESCRIBE PAIN. "WHAT PAIN?" ONE MINUTE TO "YEAH IT HURTS!" THE NEXT. UNABLE TO SAY WHERE IT HURTS. APPLYING BARRIER CREAM TO SCROTUM TO PREVENT SKIN BREAK DOWN SINCE HE HAS BEEN INCONTINENT THIS SHIFT. PT TOLERATED TURNS WELL. PROTECTIVE SLEEVE ON RT ARM TO PREVENT PULLING OUT IV.
--- NOTE | 2016-08-27 18:53 | NUR ---
HEPARIN CONSULT (Recurring): PTT = 54 Sec. Will adjust Heparin Drip to 1000 units/hr (25 ml/hr). Will recheck PTT and adjust regimen as needed. Thank you.
[2016-08-27 20:57] VITALS: BP_SYST 148; BP_SYST 167; BP_DIAS 64; BP_DIAS 65; BP_DIAS 86; PULSE 61
[2016-08-27] MEDS: ATORVASTATIN 20 MG TABLET PO SCH (21:01)
--- NOTE | 2016-08-27 23:45 | NUR ---
Chart Check 24 hour chart check completed
[2016-08-27 23:59] VITALS: BP 178/76; PULSE 79; RESP 20; TEMP 98.8; O2SAT 96
[2016-08-28] VITALS (51 sets, daily range): BP systolic 127–212; BP diastolic 59–92; PULSE 46–71; RESP 10–26; TEMP 97.6–98.1; O2SAT 89–100
[2016-08-28] MEDS: OXYCODONE/APAP 5mg/325mg TABLET PO PRN ×2 (00:29→07:41)
[2016-08-28] MEDS: 1/2 NS 1,000 ML IV SCH ×2 (02:27→12:00)
[2016-08-28 03:08] LABS: FOLATE 16.5 NG/ML (2.76-20)
--- NOTE | 2016-08-28 03:51 | NUR ---
aPTT Ji Martínez, bindery leadperson pharmacist, reported to call if pts 0400 aPTT lab draw is <50 or >75. No need to call if aPTT is between 50-75, continue heparin at same rate of 25ml/hr. Ok to dc heparin at 0530. Will continue to monitor.
--- NOTE | 2016-08-28 05:13 | NUR ---
shift summary pt has slept off and on during the night. pt given percocet for pain, see emar for time. vss, on ra. denies n/v/soa. npo since midnight, except for meds. up with assist of 1-2, gb, walker to obtain orthostatic vs. turned q2h. incontinent frequently. heparin running @ 25ml/hr and 1/2 ns running @ 100ml/hr in right forearm. telemetry sinus rhythm. bed locked and low, bed alarm on. call light within reach. will continue to monitor. daughter at bedside.
[2016-08-28 05:14] LABS: EOSINOPHILS # (AUTO) 0.3 T/MM3 (0-0.5); EOSINOPHILS % (AUTO) 4.9 % (0-4); HCT - HEMATOCRIT 28.4 % (41-53); HGB - HEMOGLOBIN 9.6 GM/DL (13.5-17.5); LYMPHOCYTES % (AUTO) 17.6 % (23-45); MEAN CORPUSCULAR HGB 36.4 UUG (26-34); MEAN CORPUSCULAR HGB CONC(MCHC 33.8 GM/DL (31-37); MEAN CORPUSCULAR VOLUME 107.6 UM3 (80-100); MEAN PLATELET VOLUME 9.9 UM3 (9.4-12.4); MONOCYTES # (AUTO) 0.6 T/MM3 (0-0.8); MONOCYTES % (AUTO) 10.2 % (0-9.0); NEUTROPHILS #(AUTO)-ABSOLUTE 3.8 T/MM3 (1.8-7.7); NEUTROPHILS % (AUTO) 67.3 % (33-66); RED BLOOD COUNT 2.64 M/MM3 (4.50-5.90); WBC - WHITE BLOOD COUNT 5.7 T/MM3 (4.5-11.0)
--- NOTE | 2016-08-28 05:42 | NUR ---
APTT THIS RN CALLED CHRISTOPHE DOUGLAS, PHARMACIST TO REPORT PTS aPTT OF 47.3. OK TO DC HEPARIN 4 HRS BEFORE HEART CATH TODAY.
[2016-08-28] MEDS: LANSOPRAZOLE SOLU-TAB 15 MG TABLET PO SCH (05:53)
--- NOTE | 2016-08-28 06:11 | NUR ---
HEPARIN CONSULT (Recurring): PTT = 47.3 Sec. Platelet count = 117 T/mm3. Will adjust Heparin Drip to 1040 units/hr (26 ml/hr). Heart cath scheduled for today so no bolus ordered. Will recheck PTT and adjust regimen as needed. Thank you.
[2016-08-28] MEDS: POLYETHYL.GLYCOL 3350 PACKET 17gm PO SCH (07:36)
[2016-08-28] MEDS: NORMAL SALINE 1,000 ML IV SCH ×2 (07:41→19:31)
[2016-08-28] MEDS: THYROID 30 MG TABLET PO SCH (07:42)
[2016-08-28] MEDS: ASPIRIN 81 MG CHEWABLE TABLET PO SCH (07:42)
--- NOTE | 2016-08-28 08:48 | NUR ---
PT NOTE: Attempted to see pt before heart cath today. Pt vitals signs are HR 44 and BP 197/88. Will wait for therapy and resume after heart cath. Any questions call [phone]
[2016-08-28] MEDS ORDERED: VERAPAMIL 5mg/2ml INJECTION IV ONE (08:50)
[2016-08-28] MEDS ORDERED: NITROGLYCERIN 50mg/10ml INJECTION IV ONE ×2 (08:50→15:01)
[2016-08-28] MEDS ORDERED: LIDOCAINE 1% (10mg/ml) 30ml SDV ONE ×3 (08:51→13:31)
[2016-08-28] MEDS ORDERED: HEPARIN 1,000units in NS 500ml BAG IV ONE ×2 (08:51→13:31)
[2016-08-28] MEDS ORDERED: IOHEXOL 350mg/ml 200ml BOTTLE ONE ×2 (08:52→14:22)
--- NOTE | 2016-08-28 10:20 | NUR ---
TO SUPPLY REQUIREMENTS OFFICER PT TRANSPORTED TO SUPPLY REQUIREMENTS OFFICER AT THIS TIME BY CART AND ACCOMPANIED BY VERNON PHIPPS. PT CHECKED FOR INCONTINENCE AND BRIEF CHANGED PRIOR TO TRANSFER. VITAL SIGNS STABLE ON ROOM AIR. DAUGHTERS PRESENT UPON TRANSFER. INFORMED CONSENT PREVIOUSLY SIGNED. WILL CONTINUE TO MONITOR.
[2016-08-28] MEDS ORDERED: FENTANYL 100mcg/2ml INJECTION ONE ×2 (10:33→14:26)
[2016-08-28] MEDS ORDERED: MIDAZOLAM 2mg/2ml INJECTION ONE ×2 (10:33→14:27)
[2016-08-28] MEDS ORDERED: SALINE FLUSH 10ml SYRINGE ONE (10:33)
[2016-08-28] MEDS ORDERED: CLOPIDOGREL 75 MG TABLET ONE (11:06)
--- NOTE | 2016-08-28 11:40 | NUR ---
CCU ADMISSION Patient arrives from cardiovascular lab director to CCU bed 2, accompanied by daughters. Settled into room and monitoring begun. Heparin infuses at 25 mls/hr = 1000 units/hr, and NS at 75 mls/hr. TR band is in place to the right wrist inflated with 14 ml of air according to cardiovascular lab director report. Strong radial pulses. O2 sat probe to the thumb on operative side.
[2016-08-28] MEDS ORDERED: HYDROCODONE/APAP 5 mg/325 mg TABLET PO PRN ×2 (11:45→18:30)
[2016-08-28] MEDS ORDERED: BISACODYL 10 MG SUPPOSITORY RECTALLY PRN ×2 (11:45→18:30)
[2016-08-28] MEDS ORDERED: MILK OF MAGNESIA 30 ML SUSP PO PRN ×2 (11:45→18:30)
[2016-08-28] MEDS ORDERED: NITROGLYCERIN 0.4 MG SUBLINGUAL TABLET SL PRN ×2 (11:45→18:30)
[2016-08-28] MEDS ORDERED: ACETAMINOPHEN 325 MG TABLET PO PRN (11:45)
[2016-08-28] MEDS ORDERED: LORAZEPAM 0.5 MG TABLET PO PRN ×2 (11:45→18:30)
[2016-08-28] MEDS ORDERED: BISACODYL 5 MG E.C. TABLET PO PRN ×2 (11:45→18:30)
[2016-08-28] MEDS ORDERED: LORAZEPAM 2 MG/ML INJECTION IV PRN ×2 (11:45→18:30)
[2016-08-28] MEDS ORDERED: ATROPINE 1 MG/ML VIAL IV PRN ×2 (11:45→18:30)
[2016-08-28] MEDS ORDERED: METOCLOPRAMIDE 10mg/2ml INJECTION IV PRN ×3 (11:45→18:30)
[2016-08-28] MEDS ORDERED: ONDANSETRON 4mg/2ml INJECTION IV PRN ×2 (11:45→18:30)
[2016-08-28] MEDS ORDERED: PROMETHAZINE 25 MG INJECTION IV PRN ×2 (11:45→18:30)
[2016-08-28] MEDS ORDERED: NORMAL SALINE 1,000 ML IV SCH ×2 (11:45→18:30)
[2016-08-28] MEDS ORDERED: MAG-AL + SIM LIQUID 30 ML UDC PO PRN ×2 (11:45→18:30)
[2016-08-28] MEDS ORDERED: MORPHINE SULFATE 4 MG SYRINGE IV PRN ×4 (11:45→18:30)
[2016-08-28] MEDS ORDERED: NITROGLYCERIN 2% OINTMENT 1 G PACKET TOP ONE (12:30)
--- NOTE | 2016-08-28 12:39 | NUR ---
HYPERTENSION Discussed hypertension after catheter finisher and inspector with Dr Ayala when he rounded on this patient shortly after arrival from catheter finisher and inspector. Nitropaste 1 inch was ordered and is now applied after explanation to patient. Current BP is 192/74. HR 58. Sats 95% on room air. ETCO2 33, RR 13. Patient resting with eyes closed after changing him and repositioning. Transradial site assessments have been WNL and patient has been instructed and reinstructed several times to limit the movement of this wrist. He will need reminders due to his short term memory impairment. Call light is within reach and has been explained. Bed alarm is on.
--- NOTE | 2016-08-28 12:43 | NUR ---
WEIGHT CHANGE Weight change called to pharmacy, related to Heparin protocol. Current weight is 67.9 kg.
--- NOTE | 2016-08-28 14:12 | NUR ---
HEPARIN DRIP; RETURN TO CLERK SPECIALIST Patient returns to pharmacy laboratory technician for intervention by Dr Alonzo. Groin site was prepped by [place] Remy from pharmacy laboratory technician. Family to waiting area as well. Order taken from Dr Alonzo to stop the heparin again at 1400, this was stopped and pharmacy laboratory technician staff Aiden and Sandrita were aware. Nursing has also clarified Heparin orders post first cath with Dr Ayala. Dr Ayala intended the Heparin restarted after the first cath. This was running on return to the unit from the first cath procedure and continued until 1400. Rate was increased from 25mls/hr to 26 mls/hr after weight check and adjustment in order by pharmacy. I have discussed these Heparin orders with Ji in pharmacy, and he is aware the the Heparin is currently stopped. Will follow up with this after the intervention to ensure the correct order post cath.
--- NOTE | 2016-08-28 14:25 | CVPROF ---
DATE 08/28/2016 PROCEDURE PERFORMED Transradial left heart catheterization LV gram Coronary angiogram INDICATIONS Non-STEMI. Patient has been limited to a scooter for a few years due to an old back injury and worsening arthritis and leg weakness. Patient's family don't want bypass surgery and he would have been a poor candidate anyway. We're looking for a coronary angiogram and possible PCI options here due to his OR. They understood the indications, alternatives, risks and benefits and they agreed to proceed. PREMEDICATION: IV sedation. 1 mg of Versed. 25 mcg of fentanyl. NARRATIVE OF PROCEDURE The patient was brought to the cardiac cath laboratory, received IV sedation. I went ahead and injected lidocaine 1% about 1 cc in the right wrist, cannulated the right radial artery without difficulty using modified Seldinger percutaneous technique. A 6 Irish slender sheath was introduced in place. Sidearm was aspirated and flushed. Went ahead and injected intraarterially the usual drug combo. Used a half dose of verapamil due to heart rate in the 50s. The patient is free from any angina and he is currently quite stable. I went ahead and used a [place] catheter and then exchanged to a Zenia to perform the selective left coronary angiogram. To perform the right coronary angiogram and LV and left heart catheterization, I used a [place] catheter. There were some catheter-induced induced spasms in the proximal RCA. At the conclusion of the study, TR Band was deployed for hemostasis. The procedure was well tolerated. There was no immediate complications. Coordination with interventional colleague, Dr. Alonzo, regarding transfemoral PCI is underway. He is looking into doing his PCI early afternoon. The patient is currently free from angina and hemodynamically and electrically stable. The patient and the family reiterated their wish to avoid CABG. FINDINGS LEFT HEART CATHETERIZATION: LVEDP was 14 mmHg. No subvalvular or transvalvular pressure gradient was present. CORONARY ANGIOGRAM: Coronaries exhibit moderate calcification proximally. Left main coronary artery has mild plaquing, nothing occlusive. The LAD is a large vessel, has multiple areas of narrowing. The one in the mid LAD is hazy, 90%, involving the origin of a smaller diagonal branch about 1.5 mm in caliber. There is also significant lesion, about 80%, downstream in the proximal to mid-distal LAD. The bifurcation lesion also involves the origin of the diagonal branch where it is subtotal involving that branch. Left circumflex artery is a large vessel that is codominant, quite large in caliber. It gives origin to multiple obtuse marginal branches, PLB and PDA branches. The OM branch exhibits about 70-75% eccentric stenosis. The reset of the left circumflex artery is free from occlusive disease. Right coronary artery is a small vessel. Nevertheless, it is codominant, it gives origin to a tiny RPDA. There is critical stenosis about 98% in the mid segment right shortly before the origin of the acute marginal branch. RPD and RPLB are small in caliber, exhibits minor scattered plaquing. LV gram shows inferior wall hypokinesis and LV systolic function is normal. Ejection fraction is about 65%. IMPRESSION 1. Three-vessel coronary artery disease as manifested by multiple significant occlusions in the LAD including a hazy probably thrombus 90% stenosis in the mid LAD, bifurcation location involving the origin of a smaller diagonal branch, a 70-75% stenosis of the obtuse marginal branch and a 98% occlusion of the mid RCA (a small codominant vessel). 2. Codominant left circumflex artery and RCA, although the former is much larger in size. 3. Proximal coronary artery calcification. 4. Normal LV systolic function with inferior wall hypokinesis. 5. Normal filling pressures. Normal hemodynamics. DISCUSSION AND PLAN 1. Unfortunately, the patient is a poor surgical candidate for CABG and patient and family don't consent for that either. Dr. Alonzo is planning PCI this afternoon. 2. I am going to place the patient in CCU, restart IV heparin and load him with Plavix 600 mg to help reducing the thrombus burden prior to intervention. 3. Patient and family understand the risk and benefits of the intervention and they are willing to proceed again. They don't consent for CABG or opinion in that regard. I think that is reasonable given the patient's poor functional status and comorbidities. MTDD
[2016-08-28] MEDS ORDERED: BIVALIRUDIN 250 MG IV ONE (14:28)
[2016-08-28] MEDS ORDERED: WATER FOR INJECTION 20 ML ONE (14:28)
[2016-08-28] MEDS ORDERED: NORMAL SALINE 50 ML IV ONE (14:29)
--- NOTE | 2016-08-28 14:59 | NUR ---
Patient unavailable for therapy at this time due to being transferred to CCU 2' heart cath.
[2016-08-28] MEDS ORDERED: LABETALOL 20mg/4ml INJECTION IV ONE ×2 (15:05→15:48)
--- NOTE | 2016-08-28 16:00 | NUR ---
CM ATTEMPTS TO MEET WITH PT AND FAMILY ON THIS DATE. PT AT PROCEDURES DURING THIS DATE. THIS WORKER SPOKE TO PRES [facility] AND PT WOULD BE ABLE TO RETURN ONLY TO SKILLED OR HEALTHCARE. CHAS (PRES MANOR) ADVISED THAT PT IS NOT ABLE TO RETURN TO HIS ASSISTED LIVING UNTIL HE IS ABLE TO DO MORE ON HIS OWN. CASE MANAGEMENT WILL CONTINUE TO FOLLOW AND ASSIST IN DISCHARGE PLANNING.
--- NOTE | 2016-08-28 16:10 | NUR ---
FROM [employer] [employer] Patient returns from rags laborer after intervention with two stents to the LAD and ballooning to the RCA. Tele SR with BBB. Hypertension treated in rags laborer with 20 mg of Labetalol- currently 197/82, and patient is noncompliant with keeping the right leg still. Monitoring groin site carefully. Will begin air removal from TR band shortly- patient received Angiomax in procedure and rags laborer staff did not want air removed before or during the procedure for this reason. Pedal pulse is palpable, radial pulse is palpable without change in site since assessment prior to procedure. Angio-Seal closure device brochure is placed in the room for patient's daughters who will come to bedside shortly.
--- NOTE | 2016-08-28 16:14 | NUR ---
HEPARIN DC'D Order received to dc Heparin drip. Drip has not run since 1400 prior to procedure.
--- NOTE | 2016-08-28 16:40 | NUR ---
Morphine Morphine 3 mg by slow IV push administered for severe right leg pain rated 10/10, and in order to promote decreased spasming of the right leg and reduction in blood pressure. Explanation provided to patient and his daughters prior to administration and they are agreeable.
--- NOTE | 2016-08-28 17:09 | PNPDOC ---
Subjective Date DATE: 08/28/16 TIME: 16:58 Subjective Mr. Patiño was seen this morning prior to heart catheterization with daughters at bedside. Daughters report he had a better night with less confusion. Patient denies dyspnea, chest pain, nausea, or lightheadedness. He is having some pain in his right leg which is chronic. Nursing report heart rates have been in the 40s and as low as 38 with sinus bradycardia on telemetry. Blood pressure has consistently been stable. Objective Vital Signs Vital signs Vital Signs Date Time Temp Pulse Resp B/P Pulse Ox O2 Delivery O2 Flow Rate FiO2 08/28/16 16:31 15 08/28/16 14:01 65 212/92 97 Room Air 08/28/16 11:45 97.6 EXAM General-NAD, alert, hard of hearing HEENT-conjugate gaze, conjunctiva clear Lungs-respirations nonlabored, good airflow, anterior breath sounds clear Cardiac-regular rhythm, S1-S2 Abd-soft, nontender, bowel sounds present Ext-without edema Musculoskeletal-right great toe is tender (chronic) Neuro-percher and plantar flexion symmetric/strong, follow simple commands Psych-oriented to name only Telemetry Rhythm: Sinus Rhythm, Sinus Bradycardia Height (Feet): 5 Height (Inches): 8.00 Weight (Kilograms): 67.900 Laboratory Laboratory Laboratory Tests 08/26/16 22:06 08/27/16 04:15 Laboratory Tests 08/27/16 04:15 08/28/16 04:20 B-12 362, folic acid 16.5 EKG Telemetry strips reviewed-sinus bradycardia; morning twelve-lead EKG reviewed- sinus bradycardia with minimal residual ST depression in leads V5 and V6 Assessment & Plan Problems: (1) Non-ST elevation IN (NSTEMI) (2) CAD (coronary artery disease), [place] coronary artery Qualifiers: [place] vs. transplanted heart: [place] heart Assessment & Plan: Clot in LAD with extensive disease per preliminary catheter report (3) Fall Status: Acute Qualifiers: Encounter type: initial encounter Qualified Codes: W19.XXXA - Unspecified fall, initial encounter (4) Cerebral ventriculomegaly Assessment & Plan: Disproportionate ventricular dilatation-questionable NPH (5) Leukocytosis Status: Resolved Qualifiers: Leukocytosis type: bandemia Qualified Codes: D72.825 - Bandemia (6) Elevated d-dimer Status: Acute (7) HTN (hypertension) Status: Chronic (8) Pulmonary hypertension Status: Chronic Assessment & Plan: Moderate TR, PAP 59 on echo 08/26/69 (9) GERD (gastroesophageal reflux disease) Status: Chronic (10) Chronic kidney disease Status: Chronic (11) Macrocytic anemia Assessment & Plan: Low normal B-12 level (12) Hypernatremia Status: Resolved Assessment & Plan: Present on admission (13) History of thyroid cancer Status: Resolved (14) Former tobacco use Status: Resolved (15) Bradycardia Status: Acute Assessment & Plan: Sinus bradycardia-ischemic versus medications Assessment Patient went cardiac catheterization this morning between initial evaluation and time of this note. Acute thrombus identified in the LAD, will undergo angioplasty/stent this afternoon. Additional significant disease involving the RCA and circumflex. RCA may be stented as well. Patient transferred to the CCU. Bradycardia asymptomatic, Lopressor dose decreased although ischemia may be triggering factor. Continue heparin, beta amy, statin, and aspirin. Echocardiogram reveals moderate pulmonary hypertension with moderate TR and mild MR, mild diastolic dysfunction and ejection fraction 66%. Hypokinesis of lateral and inferior muhammad described. Last infusion overnight, continue to monitor. Results of the CT with suggested ventriculomegaly and possible NPH discussed- daughters report they would not pursue surgical intervention and does not wish to pursue further evaluation. Continue physical therapy due to gait instability/weakness. B low normal, macrocytic anemia present. Oral supplementation initiated. Plan/Intensity of Service Discussed with nursing and daughters, telemetry/EKG reviewed by myself. Discussed with Dr. Ayala, laboratory data reviewed/ordered. DVT Prophylaxis: SCD'S, Heparin drip Code Status Do Not Resuscitate Hospital Course Summary Disclaimer The hospital course summary below is not to be considered part of the above Progress Note. Hospital Course Summary Admit patient to outpatient observation under the care of Dr. Antonio for elevated troponin, elevated d-dimer and fall Monitor patient on cardiac telemetry. Obtain serial troponin x3, EKG with mild anterolateral ST depression. Consult placed to Dr Ayala for further cardiac evaluation and treatment. Keep patient NPO at this time as he may require heart cath. 1/2 NS at 100 ml/hr for hydration Will obtain CTA study to rule out pulmonary emboli and aortic dissection - negative for acute process. Regards, leukocytosis, will continue to monitor. No clear evidence of infectious process currently SCDs to bilateral lower ext for DVT prophylaxis Did discuss advanced directives with patient and daughter, he does wish to be a do not resuscitate 08/27/16 Patient is hemodynamically stable with no significant orthostatic drop on vitals obtained this afternoon. He remains minimally symptomatic and troponin has peaked. No arrhythmias evident. Continue heparin, beta amy, statin, and aspirin. Echocardiogram reveals moderate pulmonary hypertension with moderate TR and mild MR, mild diastolic dysfunction and ejection fraction 66%. Hypokinesis of lateral and inferior muhammad described. Tentatively scheduled for cardiac catheterization tomorrow. Hospitalization and increased confusion in patients with underlying dementia discussed with patient's daughters-increase natural light and getting out of the room recommended. Results of the CT with suggested ventriculomegaly and possible NPH discussed- daughters report they would not pursue surgical intervention and does not wish to pursue further evaluation. Continue physical therapy due to gait instability/weakness. B 12/folic acid pending. 08/28/16 Bradycardia asymptomatic, Lopressor dose decreased although ischemia may be triggering factor. Continue heparin, beta amy, statin, and aspirin. Echocardiogram reveals moderate pulmonary hypertension with moderate TR and mild MR, mild diastolic dysfunction and ejection fraction 66%. Hypokinesis of lateral and inferior muhammad described. Last infusion overnight, continue to monitor. Results of the CT with suggested ventriculomegaly and possible NPH discussed- daughters report they would not pursue surgical intervention and does not wish to pursue further evaluation. Continue physical therapy due to gait instability/weakness. B low normal, macrocytic anemia present. Oral supplementation initiated. JOCE ANTONIO MD Aug 28, 2016 17:02
[2016-08-28] MEDS ORDERED: LABETALOL 100mg/20ml INJECTION IV ONE (17:30)
--- NOTE | 2016-08-28 17:35 | CVPROF ---
DATE 08/28/[address] Laura Ayala DIAGNOSES Acute coronary syndrome. PROCEDURE 1. PTCA and stenting of mid and distal LAD coronary artery. 2. PTCA of mid right coronary artery. METHODS Using Seldinger technique, the right femoral artery was accessed and a 6-Fr sheath was placed * *. A Q4 guide was used for regional sales consultant images. Intravenous Angiomax therapy was used. Oral Plavix 600 mg was administered. A Whisper wire was advanced past the mid and distal LAD stenosis. A 2.5 mm balloon was used for * * lesion. A 2.5 x 18 mm Vega drug-coated stent was deployed at the distal segment using high pressure inflations. A 3.0 x 22 mm drug-coated stent (Alpine) was deployed in the mid segment at high pressures. Intracoronary nitroglycerin was given. Final cines were obtained. We then turned our attention to the RCA. An RDC guide was used for regional sales consultant images. The Whisper wire was again advanced past the lesion site. A 2.5 mm balloon was used, and high pressure inflations were performed. Final cines were obtained. The patient tolerated the procedure well. The sheath was then removed, a 6-Fr Angio-Seal deployed, and the patient was returned to his room in stable condition. Hemodynamic data is on the attached sheet. LV pressure is 184/80. CORONARY ANGIOGRAMS Left main coronary artery is normal. LAD coronary artery has mid-vessel 98% AV stenosis. The distal segment has 80% disease. Post stenting, both segments have 0% residual stenosis. RCA is a relatively small, nondominant vessel. The proximal segment has 40% disease. The mid segment has a focal 98% stenosis. The distal segment is small-caliber appearing. Post angioplasty, there is less than 20% residual stenosis. There is no intimal disruption. There is excellent distal coronary flow (ALICIA grade 3). CONCLUSIONS 1. Successful coronary angioplasty of mid right coronary artery. 2. Successful PTCA and stenting using drug-coated Alpine stents of the mid and distal LAD coronary artery. [facility]
--- NOTE | 2016-08-28 17:45 | NUR ---
ETCO2 ETCO2 readings 35 with normal waveform and RR averaging 12 per minute. Sleep apnea type respiratory pattern noted when patient sleeps.
[2016-08-28] MEDS: LABETALOL 100 MG TABLET PO SCH ×2 (18:13→18:34)
--- NOTE | 2016-08-28 18:45 | NUR ---
TRANSRADIAL AND GROIN SITES Patient is stable post heart cath after being constantly at bedside due to patient's inability to hold still and working to control blood pressure. Additional IV Labetalol was given after reporting uncontrolled hypertension to Dr Ayala and patient was started on oral Labetalol. Nitroglycerin drip orders were given for if the patient is unable to sustain blood pressures under 180, however currently pressures are improved to 163/72. Continue to monitor and will pass on to next shift. Transradial band has been removed after 14 ml of air was removed gradually, 2 ml at a time due to concern over HTN. No complications noted. Site dressed with gauze and opsite. Limited extremity band placed, and arm splint replaced. Educated patient on the continued need to limit the movement of the extremity to prevent arterial bleeding. Verbalized understanding but will need reinforcement. Right groin site is stable and unchanged since arrival from the lab tech, with strong posterior tibial pulses palpated and no change in the quality of the pulses. Patient has been resting and sleeping on and off, and is close to ready to eat. He tells me that he is having no pain after 3 mg of Morphine was given for right leg pain that is chronic and was initially rated 10/10.
[2016-08-28] MEDS ORDERED: NITROGLYCERIN 50 MG in D5W 250 ML IV PRN (20:00)
--- NOTE | 2016-08-28 20:30 | NUR ---
Postprandial Pt ate all of his supper and after eating was noted to have a moist/loose sounding cough, pt was able to produce a fair amount of thick sputum by coughing but RN did utilize oral suction as well. Pt tolerated well, verbalizes that he believes "we got it all out".
[2016-08-28] MEDS: ATORVASTATIN 20 MG TABLET PO SCH (21:57)
[2016-08-29] VITALS (52 sets, daily range): BP systolic 91–190; BP diastolic 52–109; PULSE 60–74; RESP 11–53; TEMP 97.8–99.5; O2SAT 93–100
[2016-08-29] MEDS: OXYCODONE/APAP 5mg/325mg TABLET PO PRN ×2 (01:27→13:42)
--- NOTE | 2016-08-29 01:27 | NUR ---
Pain Pt c/o pain in right hip, doesn't rate, but states it "hurts a lot". PRN Percocet admin.
--- NOTE | 2016-08-29 02:27 | NUR ---
Pain reassess Pt now resting quietly/sleeping at this time. No c/o pain.
[2016-08-29 05:22] LABS: EOSINOPHILS # (AUTO) 0.3 T/MM3 (0-0.5); EOSINOPHILS % (AUTO) 4.5 % (0-4); HCT - HEMATOCRIT 27.1 % (41-53); HGB - HEMOGLOBIN 9.2 GM/DL (13.5-17.5); IMMATURE GRANULOCYTE # (AUTO) 0.01 T/MM3 (0.00-0.03); IMMATURE GRANULOCYTE % (AUTO) 0.2 % (0.0-0.5); LYMPHOCYTES # (AUTO) 0.8 T/MM3 (1-4.8); LYMPHOCYTES % (AUTO) 11.6 % (23-45); MEAN CORPUSCULAR HGB 36.7 UUG (26-34); MEAN CORPUSCULAR HGB CONC(MCHC 33.9 GM/DL (31-37); MEAN PLATELET VOLUME 10.2 UM3 (9.4-12.4); MONOCYTES # (AUTO) 0.5 T/MM3 (0-0.8); MONOCYTES % (AUTO) 7.6 % (0-9.0); NEUTROPHILS #(AUTO)-ABSOLUTE 4.9 T/MM3 (1.8-7.7); NEUTROPHILS % (AUTO) 76.1 % (33-66); RED BLOOD COUNT 2.51 M/MM3 (4.50-5.90); WBC - WHITE BLOOD COUNT 6.4 T/MM3 (4.5-11.0)
[2016-08-29 05:29] LABS: ANION GAP 9 MEQ/L (5-15); BUN/CREATININE RATIO 20 RATIO (6-26); CALCIUM 8.7 MG/DL (8.4-10.2); CHLORIDE 106 MEQ/L (98-107); CO2 - CARBON DIOXIDE 26 MEQ/L (22-30); CREATININE 1.1 MG/DL (0.8-1.5); GLOMERULAR FILTRATION RATE 64; GLUCOSE 105 MG/DL (75-110); POTASSIUM 4.3 MEQ/L (3.6-5); SODIUM 141 MEQ/L (134-144)
[2016-08-29] MEDS: LANSOPRAZOLE PO SCH (06:27)
[2016-08-29] MEDS ORDERED: PANTOPRAZOLE 40 MG TABLET PO SCH ×2 (06:30)
[2016-08-29] MEDS ORDERED: LANSOPRAZOLE SOLU-TAB 15 MG TABLET PO SCH (06:30)
--- NOTE | 2016-08-29 06:55 | NUR ---
Status Pt slept very well during night. Pt denies pain after pain meds admin. Pt right groin site and right radial site are CDI and tissue soft. Pulses to right radial site and right tibial site are strong. Pt alert to name only. Pt SBP is mostly 150s to 160's occasionally up to 180's/190's. Pt denies SOA and nausea. Pt on 1 liter of O2 most of night, weaned to RA this am. Pt repositioned Q2H for comfort. Pt incontinent of urine Q2H during night. Pt takes pills whole with no apparent difficulty. Pt daughter here this am. Bed alarm on, will continue to monitor.
[2016-08-29] MEDS: NORMAL SALINE 1,000 ML IV SCH (08:05)
[2016-08-29] MEDS ORDERED: CLOPIDOGREL 75 MG TABLET PO SCH (09:00)
[2016-08-29] MEDS: POLYETHYL.GLYCOL 3350 PACKET 17gm PO SCH (09:18)
[2016-08-29] MEDS: ASPIRIN 81 MG CHEWABLE TABLET PO SCH (09:19)
[2016-08-29] MEDS: CYANOCOBALAMIN (B-12) 500mcg TABLET PO SCH (09:19)
[2016-08-29] MEDS: LABETALOL 100 MG TABLET PO SCH (09:19)
[2016-08-29] MEDS: THYROID 30 MG TABLET PO SCH (09:19)
[2016-08-29] MEDS: CLOPIDOGREL 75 MG TABLET PO SCH (09:19)
--- NOTE | 2016-08-29 11:34 | PNPDOC ---
Subjective Date DATE: 08/29/16 TIME: 11:21 Subjective Feeling better today, eating breakfast. Denies any further chest pain overnight or this morning. Dyspnea with exertion, feels a little weak. Good appetite. Objective Vital Signs Vital signs Vital Signs Date Time Temp Pulse Resp B/P Pulse Ox O2 Delivery O2 Flow Rate FiO2 08/29/16 09:00 63 21 133/71 96 Room Air 08/29/16 08:00 99.5 08/29/16 06:30 1.00 Telemetry Rhythm: Sinus Rhythm Height (Feet): 5 Height (Inches): 8.00 Weight (Kilograms): 64.100 General General Appearance: Alert, Cooperative, No Acute Distress Eyes (Brief) Eyes: FOUND: EOMI, PERRL, NOT FOUND: scleral icterus ENMT (Brief) ENMT: FOUND: mucosa moist, NOT FOUND: hearing intact Neck (Brief) Neck: NOT FOUND: JVD, adenopathy Respiratory (Brief) Respiratory: FOUND: equal bilaterally, symmetrical, NOT FOUND: rales, wheezes Cardiovascular (Brief) Cardiac: FOUND: regular rate, regular rhythm, NOT FOUND: pedal edema Abdomen (Brief) Abdominal: FOUND: soft, NOT FOUND: distended, tender Extremities (Brief) Extremity : Extremity Finding: FOUND: warm, NOT FOUND: cyanosis, edema Integumentary (Brief) Integumentary: FOUND: dry, warm, NOT FOUND: rash Laboratory Laboratory Laboratory Tests 08/29/16 05:06 Laboratory Tests 08/28/16 04:20 08/29/16 05:06 Assessment & Plan Problems: (1) Non-ST elevation PR (NSTEMI) (2) CAD (coronary artery disease), [place] coronary artery Qualifiers: [place] vs. transplanted heart: [place] heart Assessment & Plan: Clot in LAD with extensive disease per preliminary catheter report Now s/p GABRIELLA x 2 to the mid and distal LAD, ASSISTANT TEACHER PRIMARY to the RCA on 08/28 (3) Fall Status: Acute Qualifiers: Encounter type: initial encounter Qualified Codes: W19.XXXA - Unspecified fall, initial encounter (4) Cerebral ventriculomegaly Assessment & Plan: Disproportionate ventricular dilatation-questionable NPH (5) Leukocytosis Status: Resolved Qualifiers: Leukocytosis type: bandemia Qualified Codes: D72.825 - Bandemia (6) Elevated d-dimer Status: Acute (7) HTN (hypertension) Status: Chronic (8) Pulmonary hypertension Status: Chronic Assessment & Plan: Moderate TR, PAP 59 on echo 08/26/69 (9) GERD (gastroesophageal reflux disease) Status: Chronic (10) Chronic kidney disease Status: Chronic Qualifiers: Chronic kidney disease stage: stage 2 (mild) Qualified Codes: N18.2 - Chronic kidney disease, stage 2 (mild) (11) Macrocytic anemia Assessment & Plan: Low normal B-12 level (12) Hypernatremia Status: Resolved Assessment & Plan: Present on admission (13) History of thyroid cancer Status: Resolved (14) Former tobacco use Status: Resolved (15) Bradycardia Status: Acute Assessment & Plan: Sinus bradycardia-ischemic versus medications, improved this AM and will monitor on labetalol dosing Assessment Patient went for cardiac cath on 08/28 with GABRIELLA x 2 to the mid and distal LAD, ASSISTANT TEACHER PRIMARY to the RCA Bradycardia asymptomatic, ischemia may have been causing bradycardia as well, improved today, on labetalol 200 mg BID Continues on beta amy, statin, plavix and aspirin with heparin stopped. Echocardiogram reveals moderate pulmonary hypertension with moderate TR and mild MR, mild diastolic dysfunction and ejection fraction 66%. Hypokinesis of lateral and inferior muhammad described. Results of the CT with suggested ventriculomegaly and possible NPH discussed- daughters report they would not pursue surgical intervention and does not wish to pursue further evaluation at this time. Continue physical therapy due to gait instability/weakness. B low normal, macrocytic anemia present. Has been started on po supplementation More hypertensive today with BP at times 180s systolic; continue lopressor and will start low dose amlodipine and monitor. Plan/Intensity of Service Discussed with nursing and daughters, telemetry/EKG reviewed by myself. Labs reviewed and ordered. Will transfer out of the ICU today, monitor on telemetry for any recurrent bradycardia, monitor BP and gait stability. Possible DC back to SNU tomorrow if bed available; discussed with case management as well and will look into plans for this. Was in assisted living as [facility] prior to this hospitalization but no longer qualifies for that level of care, will need SNU care post-DC. DVT Prophylaxis: SQ Heparin Code Status Do Not Resuscitate Hospital Course Summary Disclaimer The hospital course summary below is not to be considered part of the above Progress Note. Hospital Course Summary Admit patient to outpatient observation under the care of Dr. Antonio for elevated troponin, elevated d-dimer and fall Monitor patient on cardiac telemetry. Obtain serial troponin x3, EKG with mild anterolateral ST depression. Consult placed to Dr Ayala for further cardiac evaluation and treatment. Keep patient NPO at this time as he may require heart cath. 1/2 NS at 100 ml/hr for hydration Will obtain CTA study to rule out pulmonary emboli and aortic dissection - negative for acute process. Regards, leukocytosis, will continue to monitor. No clear evidence of infectious process currently SCDs to bilateral lower ext for DVT prophylaxis Did discuss advanced directives with patient and daughter, he does wish to be a do not resuscitate 08/27/16 Patient is hemodynamically stable with no significant orthostatic drop on vitals obtained this afternoon. He remains minimally symptomatic and troponin has peaked. No arrhythmias evident. Continue heparin, beta amy, statin, and aspirin. Echocardiogram reveals moderate pulmonary hypertension with moderate TR and mild MR, mild diastolic dysfunction and ejection fraction 66%. Hypokinesis of lateral and inferior muhammad described. Tentatively scheduled for cardiac catheterization tomorrow. Hospitalization and increased confusion in patients with underlying dementia discussed with patient's daughters-increase natural light and getting out of the room recommended. Results of the CT with suggested ventriculomegaly and possible NPH discussed- daughters report they would not pursue surgical intervention and does not wish to pursue further evaluation. Continue physical therapy due to gait instability/weakness. B 12/folic acid pending. 08/28/16 Bradycardia asymptomatic, Lopressor dose decreased although ischemia may be triggering factor. Continue heparin, beta amy, statin, and aspirin. Echocardiogram reveals moderate pulmonary hypertension with moderate TR and mild MR, mild diastolic dysfunction and ejection fraction 66%. Hypokinesis of lateral and inferior muhammad described. Last infusion overnight, continue to monitor. Results of the CT with suggested ventriculomegaly and possible NPH discussed- daughters report they would not pursue surgical intervention and does not wish to pursue further evaluation. Continue physical therapy due to gait instability/weakness. B low normal, macrocytic anemia present. Oral supplementation initiated. 08/28/16 Patient went for cardiac cath on 08/28 with GABRIELLA x 2 to the mid and distal LAD, ASSISTANT TEACHER PRIMARY to the RCA Bradycardia asymptomatic, ischemia may have been causing bradycardia as well, improved today, on labetalol 200 mg BID Continues on beta amy, statin, plavix and aspirin with heparin stopped. Echocardiogram reveals moderate pulmonary hypertension with moderate TR and mild MR, mild diastolic dysfunction and ejection fraction 66%. Hypokinesis of lateral and inferior muhammad described. Results of the CT with suggested ventriculomegaly and possible NPH discussed- daughters report they would not pursue surgical intervention and does not wish to pursue further evaluation at this time, discussed previously and they reiterate this today. Continue physical therapy due to gait instability/weakness. B low normal, macrocytic anemia present. Has been started on po supplementation More hypertensive today with BP at times 180s systolic; continue lopressor and will start low dose amlodipine and monitor. DARYA POON MD Aug 29, 2016 11:24
--- NOTE | 2016-08-29 11:49 | NUR ---
PAULO CM IN TO VISIT WITH PT. HE IS ALERT AND ORIENTED. HIS DAUGHTERS ARE PRESENT. THEY CONFIRM THAT PT WILL DC TO SNF AT [facility] WHEN MEDICALLY STABLE. CM SPOKE WITH [facility] NURSE TO LET HER KNOW THAT PT IS NOT READY FOR DC TODAY. CM INQUIRES IF THEY CAN ACCEPT PT FOR SNF ON WEDNESDAY. NURSE REPORTS THAT THEY WILL NOT BE ABLE TO ADMIT TO SNF UNTIL WEDNESDAY. DR. POON AND FAMILY ARE MADE AWARE.
[2016-08-29] MEDS: ACETAMINOPHEN 325 MG TABLET PO PRN (13:49)
--- NOTE | 2016-08-29 14:00 | NUR ---
STATUS/TRANSFER PT ALERT TO PERSON. INCREASING CONFUSION AFTER LUNCH. VSS. ORTHOSTATIC VS STABLE. JUST PRIOR TO TRANSFER, PT REPORTS GENERALIZED "NOT FEELING GOOD." ADMINISTERED PRN PO TYLENOL. PT CONFUSION DECREASED AND PT OBSERVED TO BE MORE ALERT AND INTERACTIVE FOLLOWING ACTIVITY WITH AMBULATION AND TRANSFER TO SURGICAL BED BY WHEELCHAIR. RT GROIN ANGIO-SEAL AND RT TR BAND HAVE BANDAGES C/D/I, SURROUNDING TISSUE IS SOFT. DAUGHTERS AT BEDSIDE THROUGHOUT SHIFT AND TRANSFER. HAND-OFF REPORT GIVEN TO RONNY VEGAS RN.
--- NOTE | 2016-08-29 14:10 | NUR ---
TRANSFER PT TRANSFERRED TO ROOM 126 AT THIS TIME VIA WHEELCHAIR. DAUGHTERS PRESENT UPON TRANSFER. VITAL SIGNS STABLE UPON TRANSFER. PT ASSISTED FROM WC TO BED WITH ASSIST X3, WALKER AND GAIT BELT. BED ALARM ON. WILL CONTINUE TO MONITOR.
--- NOTE | 2016-08-29 14:18 | PNPDOC ---
Subjective Date DATE: 08/29/16 TIME: 14:12 Subjective not feeling well in genreal . a little confused and paranoid as the days progresses per family and RN. getting rready to move out to the floor. denies cp or dsypnea. no wrsit or groin pain. was hypertensive last pm so switchwfd to Labetyolol . now BP upper 90's. wide fluctaution. Objective Vital Signs Vital signs Vital Signs 08/29/16 08/29/16 08/29/16 08/29/16 02:30 03:00 03:30 04:00 Temp 98.2 Pulse 68 68 67 69 Resp 11 14 14 13 B/P 158/72 158/74 160/71 184/74 Pulse Ox 98 99 99 99 O2 Delivery Nasal Cannula Nasal Cannula Nasal Cannula Nasal Cannula O2 Flow Rate 1.00 1.00 1.00 1.00 08/29/16 08/29/16 08/29/16 08/29/16 04:00 04:30 05:00 05:30 Pulse 71 66 66 67 Resp 16 16 14 18 B/P 165/72 168/70 184/79 Pulse Ox 95 98 97 O2 Delivery Nasal Cannula Nasal Cannula Nasal Cannula O2 Flow Rate 1.00 1.00 1.00 08/29/16 08/29/16 08/29/16 08/29/16 06:00 06:27 06:30 06:45 Pulse 67 68 69 Resp 14 18 16 B/P 187/76 166/76 166/73 Pulse Ox 96 96 95 O2 Delivery Nasal Cannula Nasal Cannula Nasal Cannula Room Air O2 Flow Rate 1.00 1.00 1.00 08/29/16 08/29/16 08/29/16 08/29/16 07:00 07:15 07:30 07:45 Pulse 69 67 66 66 Resp 22 15 18 18 B/P 164/72 127/60 Pulse Ox 95 94 93 94 O2 Delivery Room Air Room Air Room Air Room Air 08/29/16 08/29/16 08/29/16 08/29/16 08:00 08:00 08:15 08:30 Temp 99.5 Pulse 65 65 66 67 Resp 18 18 16 27 B/P 138/79 Pulse Ox 95 95 96 O2 Delivery Room Air Room Air Room Air 08/29/16 08/29/16 08/29/16 08/29/16 08:45 09:00 09:15 09:30 Pulse 67 63 64 67 Resp 29 21 21 21 B/P 133/71 Pulse Ox 97 96 96 96 O2 Delivery Room Air Room Air Room Air Room Air 08/29/16 08/29/16 08/29/16 08/29/16 09:45 10:00 10:01 10:15 Pulse 72 64 64 63 Resp 20 17 20 14 B/P 174/70 Pulse Ox 96 98 95 98 O2 Delivery Room Air Room Air Room Air Room Air 08/29/16 08/29/16 08/29/16 08/29/16 10:30 10:45 11:00 11:15 Pulse 65 62 64 62 Resp 13 15 53 18 Pulse Ox 97 96 95 96 O2 Delivery Room Air Room Air Room Air Room Air 08/29/16 08/29/16 08/29/16 08/29/16 11:30 11:45 12:00 12:14 Temp 98.9 Pulse 61 60 63 61 Resp 17 20 25 18 B/P 144/88 131/62 Pulse Ox 95 93 95 94 O2 Delivery Room Air Room Air Room Air Room Air 08/29/16 08/29/16 08/29/16 08/29/16 12:15 12:22 12:24 12:30 Pulse 62 63 70 69 Resp 26 34 51 29 B/P 129/60 117/52 Pulse Ox 94 95 94 96 O2 Delivery Room Air Room Air Room Air Room Air 08/29/16 08/29/16 08/29/16 08/29/16 12:45 13:00 13:15 13:30 Pulse 70 70 71 69 Resp 24 14 20 19 B/P 91/52 Pulse Ox 96 O2 Delivery Room Air Room Air Room Air Room Air Telemetry Rhythm: Sinus Rhythm (60-70's no nico) Height (Feet): 5 Height (Inches): 8.00 Weight (Kilograms): 64.100 General Alert, Disorientated, Confused, No Acute Distress, Looks Stated Age Eyes (Brief) EOMI, PERRL ENMT (Brief) mucosa moist Neck (Brief) NOT FOUND: JVD Respiratory (Brief) clear all jeffers, equal bilaterally Cardiovascular (Brief) murmur, regular rate, regular rhythm Capillary Refill: <2 sec Abdomen (Brief) BS normo active x4, soft, NOT FOUND: distended, tender Extremities (Brief) Extremity : Extremity: other (R groin and wrist dry and clean no erythema or swelling .) Extremity Finding: NOT FOUND: clubbing, cyanosis, deformity Lymphatic (Brief) NOT FOUND: adenopathy Musculoskeletal (Brief) NOT FOUND: deformity Integumentary (Brief) dry, pink, warm Neurologic (Brief) FOUND: cranial 2-12 intact, motor, sensory, NOT FOUND: facial droop, ptosis Psychiatric (Brief) alert, NOT FOUND: normal affect, oriented Laboratory Laboratory Laboratory Tests 08/29/16 05:06 Laboratory Tests 08/29/16 05:06 EKG NSR stt changes earlier,have improved Assessment & Plan Plan/Intensity of Service NSTEMI s/p GABRIELLA x2 LAD and ptca small RCA doing well. fall/poss .syncope dehdraion anemia ,poss. dilutional . stable recheck. relative hypotension HR imprived after PCI. swithc back to metorpolol . CV stable for transfer. low dose Lovenox. ill see again on wednesday. call me (or carido tracer bullet section supervisor) for Cv concerns. MAX Brown MD Aug 29, 2016 14:16
[2016-08-29] MEDS: ATORVASTATIN 20 MG TABLET PO SCH (22:56)
[2016-08-30] VITALS (15 sets, daily range): BP systolic 148–215; BP diastolic 66–91; PULSE 61–107; RESP 16–20; TEMP 97.5–98.7; O2SAT 94–97
--- NOTE | 2016-08-30 05:36 | NUR ---
SHIFT SUMMARY PATIENT IS ALERT AND ORIENTED TO SELF AND TIME ONLY THIS SHIFT. PATIENT HAS BEEN HYPERTENSIVE THIS SHIFT, OTHERWISE VITAL SIGNS ARE STABLE. PATIENT HAS BEEN INCONTINENT OF URINE AND STOOL THIS SHIFT. WILL CONTINUE TO MONITOR.
[2016-08-30 05:49] LABS: HCT - HEMATOCRIT 27.1 % (41-53); HGB - HEMOGLOBIN 9.4 GM/DL (13.5-17.5); MEAN CORPUSCULAR HGB 36.9 UUG (26-34); MEAN CORPUSCULAR HGB CONC(MCHC 34.7 GM/DL (31-37); MEAN CORPUSCULAR VOLUME 106.3 UM3 (80-100); MEAN PLATELET VOLUME 10.3 UM3 (9.4-12.4); RED BLOOD COUNT 2.55 M/MM3 (4.50-5.90); WBC - WHITE BLOOD COUNT 7.1 T/MM3 (4.5-11.0)
[2016-08-30 05:52] LABS: ALBUMIN 3.1 G/DL (3.5-5.0); ANION GAP 10 MEQ/L (5-15); BUN/CREATININE RATIO 22 RATIO (6-26); CHLORIDE 107 MEQ/L (98-107); CO2 - CARBON DIOXIDE 25 MEQ/L (22-30); GLOMERULAR FILTRATION RATE 71; GLUCOSE 103 MG/DL (75-110); PHOSPHORUS 3.7 MG/DL (2.5-4.5); POTASSIUM 4.2 MEQ/L (3.6-5); SODIUM 142 MEQ/L (134-144)
[2016-08-30] MEDS: LANSOPRAZOLE PO SCH (06:19)
[2016-08-30] MEDS: ASPIRIN 81 MG CHEWABLE TABLET PO SCH (08:36)
[2016-08-30] MEDS: POLYETHYL.GLYCOL 3350 PACKET 17gm PO SCH (09:00)
[2016-08-30] MEDS: ASPIRIN *EC* 81mg TABLET PO SCH (09:17)
[2016-08-30] MEDS: CYANOCOBALAMIN (B-12) 500mcg TABLET PO SCH (09:18)
[2016-08-30] MEDS: THYROID 30 MG TABLET PO SCH (09:18)
[2016-08-30] MEDS: CLOPIDOGREL 75 MG TABLET PO SCH (09:19)
[2016-08-30] MEDS: ENOXAPARIN 40 MG/0.4 ML INJECTION SQ SCH (09:19)
--- NOTE | 2016-08-30 11:42 | PNPDOC ---
Subjective Date DATE: 08/30/16 TIME: 11:37 Subjective Feeling better today. BP has been elevated but not checked standing. At times was low yesterday as well so very labile. Denies dizziness, fevers, chills, chest pain or dyspnea. Appetite good. Objective Vital Signs Vital signs Vital Signs Date Time Temp Pulse Resp B/P Pulse Ox O2 Delivery O2 Flow Rate FiO2 08/30/16 11:10 97.6 78 18 148/66 95 Room Air 08/29/16 06:30 1.00 Telemetry Rhythm: Sinus Rhythm (60-70's no nico) Height (Feet): 5 Height (Inches): 8.00 Weight (Kilograms): 66.100 General General Appearance: Alert, Orientated x 3, No Acute Distress Eyes (Brief) Eyes: FOUND: EOMI, PERRL, NOT FOUND: scleral icterus ENMT (Brief) ENMT: FOUND: mucosa moist Comments hard of hearing but able to hear if you speak loudly Neck (Brief) Neck: NOT FOUND: JVD, adenopathy Respiratory (Brief) Respiratory: FOUND: clear all jeffers, equal bilaterally, NOT FOUND: rales, wheezes Abdomen (Brief) Abdominal: FOUND: soft, NOT FOUND: distended, tender Extremities (Brief) Extremity : Extremity Finding: FOUND: warm, NOT FOUND: cyanosis Integumentary (Brief) Integumentary: FOUND: dry, NOT FOUND: rash Comments numerous "stuck on" SK lesions noted on face and scalp Psychiatric (Brief) Psychiatric: FOUND: alert, attentive, normal affect Laboratory Laboratory Laboratory Tests 08/29/16 05:06 08/30/16 04:11 Laboratory Tests 08/29/16 05:06 08/30/16 04:11 Assessment & Plan Problems: (1) Non-ST elevation NE (NSTEMI) (2) CAD (coronary artery disease), [place] coronary artery Qualifiers: [place] vs. transplanted heart: [place] heart Assessment & Plan: Clot in LAD with extensive disease per preliminary catheter report Now s/p GABRIELLA x 2 to the mid and distal LAD, ABLE BODIED SEAMAN to the RCA on 08/28 (3) Fall Status: Acute Qualifiers: Encounter type: initial encounter Qualified Codes: W19.XXXA - Unspecified fall, initial encounter (4) Cerebral ventriculomegaly Assessment & Plan: Disproportionate ventricular dilatation-questionable NPH (5) Leukocytosis Status: Resolved Qualifiers: Leukocytosis type: bandemia Qualified Codes: D72.825 - Bandemia (6) Elevated d-dimer Status: Acute (7) HTN (hypertension) Status: Chronic (8) Pulmonary hypertension Status: Chronic Assessment & Plan: Moderate TR, PAP 59 on echo 08/26/69 (9) GERD (gastroesophageal reflux disease) Status: Chronic (10) Chronic kidney disease Status: Chronic Qualifiers: Chronic kidney disease stage: stage 2 (mild) Qualified Codes: N18.2 - Chronic kidney disease, stage 2 (mild) (11) Macrocytic anemia Assessment & Plan: Low normal B-12 level (12) Hypernatremia Status: Resolved Assessment & Plan: Present on admission (13) History of thyroid cancer Status: Resolved (14) Former tobacco use Status: Resolved (15) Bradycardia Status: Acute Assessment & Plan: Sinus bradycardia-ischemic versus medications, improved 08/29 , continued on labetalol without difficulty Assessment Patient went for cardiac cath on 08/28 with GABRIELLA x 2 to the mid and distal LAD, ABLE BODIED SEAMAN to the RCA Bradycardia asymptomatic, ischemia may have been causing bradycardia this as it has resolved, will continu on labetalol 200 mg BID Continues on beta amy, statin, plavix and aspirin with heparin stopped. Echocardiogram reveals moderate pulmonary hypertension with moderate TR and mild MR, mild diastolic dysfunction and ejection fraction 66%. Hypokinesis of lateral and inferior muhammad described. Results of the CT with suggested ventriculomegaly and possible NPH discussed- daughters report they would not pursue surgical intervention and does not wish to pursue further evaluation at this time. Continue physical therapy due to gait instability/weakness. B low normal, macrocytic anemia present. Has been started on po supplementation Ongoing hypertension, will check orthostatic vitals to determine next steps and plan to treat standing BP given lability over the last several days. Planned DC back [facility] tomorrow. Plan/Intensity of Service Discussed with nursing and daughters, labs reviewed and ordered. Was in assisted living as [facility] prior to this hospitalization but no longer qualifies for that level of care, will need SNU care post-DC. DVT Prophylaxis: SCD'S Code Status Do Not Resuscitate Hospital Course Summary Disclaimer The hospital course summary below is not to be considered part of the above Progress Note. Hospital Course Summary Admit patient to outpatient observation under the care of Dr. Paco for elevated troponin, elevated d-dimer and fall Monitor patient on cardiac telemetry. Obtain serial troponin x3, EKG with mild anterolateral ST depression. Consult placed to Dr Ayala for further cardiac evaluation and treatment. Keep patient NPO at this time as he may require heart cath. 1/2 NS at 100 ml/hr for hydration Will obtain CTA study to rule out pulmonary emboli and aortic dissection - negative for acute process. Regards, leukocytosis, will continue to monitor. No clear evidence of infectious process currently SCDs to bilateral lower ext for DVT prophylaxis Did discuss advanced directives with patient and daughter, he does wish to be a do not resuscitate 08/27/16 Patient is hemodynamically stable with no significant orthostatic drop on vitals obtained this afternoon. He remains minimally symptomatic and troponin has peaked. No arrhythmias evident. Continue heparin, beta amy, statin, and aspirin. Echocardiogram reveals moderate pulmonary hypertension with moderate TR and mild MR, mild diastolic dysfunction and ejection fraction 66%. Hypokinesis of lateral and inferior muhammad described. Tentatively scheduled for cardiac catheterization tomorrow. Hospitalization and increased confusion in patients with underlying dementia discussed with patient's daughters-increase natural light and getting out of the room recommended. Results of the CT with suggested ventriculomegaly and possible NPH discussed- daughters report they would not pursue surgical intervention and does not wish to pursue further evaluation. Continue physical therapy due to gait instability/weakness. B 12/folic acid pending. 08/28/16 Bradycardia asymptomatic, Lopressor dose decreased although ischemia may be triggering factor. Continue heparin, beta amy, statin, and aspirin. Echocardiogram reveals moderate pulmonary hypertension with moderate TR and mild MR, mild diastolic dysfunction and ejection fraction 66%. Hypokinesis of lateral and inferior muhammad described. Last infusion overnight, continue to monitor. Results of the CT with suggested ventriculomegaly and possible NPH discussed- daughters report they would not pursue surgical intervention and does not wish to pursue further evaluation. Continue physical therapy due to gait instability/weakness. B low normal, macrocytic anemia present. Oral supplementation initiated. 08/28/16 Patient went for cardiac cath on 08/28 with GABRIELLA x 2 to the mid and distal LAD, ABLE BODIED SEAMAN to the RCA Bradycardia asymptomatic, ischemia may have been causing bradycardia as well, improved today, on labetalol 200 mg BID Continues on beta amy, statin, plavix and aspirin with heparin stopped. Echocardiogram reveals moderate pulmonary hypertension with moderate TR and mild MR, mild diastolic dysfunction and ejection fraction 66%. Hypokinesis of lateral and inferior muhammad described. Results of the CT with suggested ventriculomegaly and possible NPH discussed- daughters report they would not pursue surgical intervention and does not wish to pursue further evaluation at this time, discussed previously and they reiterate this today. Continue physical therapy due to gait instability/weakness. B low normal, macrocytic anemia present. Has been started on po supplementation More hypertensive today with BP at times 180s systolic; continue lopressor and will start low dose amlodipine and monitor. 08/30/16 Patient went for cardiac cath on 08/28 with GABRIELLA x 2 to the mid and distal LAD, ABLE BODIED SEAMAN to the RCA Bradycardia asymptomatic, ischemia may have been causing bradycardia this as it has resolved, will continu on labetalol 200 mg BID Continues on beta amy, statin, plavix and aspirin with heparin stopped. Echocardiogram reveals moderate pulmonary hypertension with moderate TR and mild MR, mild diastolic dysfunction and ejection fraction 66%. Hypokinesis of lateral and inferior muhammad described. Results of the CT with suggested ventriculomegaly and possible NPH discussed- daughters report they would not pursue surgical intervention and does not wish to pursue further evaluation at this time. Continue physical therapy due to gait instability/weakness. B low normal, macrocytic anemia present. Has been started on po supplementation Ongoing hypertension, will check orthostatic vitals to determine next steps and plan to treat standing BP given lability over the last several days. Planned DC back to [facility] for SNU care tomorrow. DARYA POON MD Aug 30, 2016 11:41
--- NOTE | 2016-08-30 18:39 | NUR ---
SHIFT SUMMARY PT ORIENTED TO PERSON ONLY THIS SHIFT. PT HAD TO BE REDIRECTED MULTIPLE TIMES OF DISCHARGE DISPOSITION AND PLAN OF CARE. ON TWO OCCASIONS THROUGHOUT SHIFT, PT THOUGHT HE WAS GOING HOME AND WANTED TO GET DRESSED IN HIS OWN CLOTHES. PT WAS FOUND WITH GOWN OFF AT THESE TIMES AND REPORTED HE DID NOT WANT THE GOWN ON. PT REMINDED THAT HE WOULD POSSIBLY DISCHARGE HOME TOMORROW TO A SKILLED FACILITY WHERE HE COULD REHAB. PT VERBALIZED UNDERSTANDING HOWEVER CONTINUED TO REPORT HE WANTED TO LEAVE. DAUGHTERS ASSISTED WITH REORIENTATION THROUGHOUT SHIFT. PT DENIED PAIN THIS SHIFT. PT INCONTINENT OF URINE THIS SHIFT. PT DID HAVE A BM THIS AM WHEN ASSISTED TO COMMODE. PT TRANSFERS X2 WITH WALKER AND GAIT BELT. THIS AFTERNOON, DAUGHTER PRESENT TO VISIT PT. PT ASSISTED INTO A WHEELCHAIR AND TRANSPORTED TO THE WAITING AREA TO VISIT WITH FAMILY AND PLAY CARDS. PT SLEPT A FEW HOURS AFTER THIS TIME BEFORE WAKING AND REQUIRING REORIENTING. PT SAT UP FOR MEALS AND FED SELF. ADEQUATE INTAKE AND OUTPUT OBTAINED. PT DENIES N/V. TELE SINUS RHYTHM. VITAL SIGNS STABLE ON ROOM AIR. BED ALARM REMAINS ON. SIDE RAILS UP X2. WILL CONTINUE TO MONITOR.
[2016-08-30] MEDS: ATORVASTATIN 20 MG TABLET PO SCH (21:35)
[2016-08-30] MEDS: ACETAMINOPHEN 325 MG TABLET PO PRN (22:00)
--- NOTE | 2016-08-30 22:35 | NUR ---
STATUS PATIENT WANTED TO GET OFF BED WITHOUT CALLING NURSE TO HELP. PATIENT TRANSFERRED TO ROOM 110 VIA HOSPITAL BED. PATIENT C/O PAIN IN RT HIP. PRN TYLENOL WAS ADMINISTRATED. ON ROOM AIR. DENIES CHEST PAIN, SOA,OR N/V. CALL LIGHT WITHIN REACH .CONTINUE TO MONITOR.
[2016-08-31 00:19] VITALS: BP 193/77; PULSE 66; RESP 20; TEMP 97.5; O2SAT 92
[2016-08-31 05:32] LABS: ALBUMIN 3.4 G/DL (3.5-5.0); ANION GAP 9 MEQ/L (5-15); BUN/CREATININE RATIO 22 RATIO (6-26); CALCIUM 9.2 MG/DL (8.4-10.2); CHLORIDE 104 MEQ/L (98-107); CO2 - CARBON DIOXIDE 28 MEQ/L (22-30); GLOMERULAR FILTRATION RATE 71; GLUCOSE 108 MG/DL (75-110); SODIUM 141 MEQ/L (134-144)
--- NOTE | 2016-08-31 08:07 | NUR ---
Alert and orientated to person and place. Cooperative. Bandaide to Left wrist from Heart Cath, dry and intact. Dressing to left groin area where intervention for heart cath was performed. Dressing is dry and intact. No drainage. Sleeps during the night. Incontinent of large amounts of urine. Complete bed change done X 2. Wears attends. No significant changes [facility] telemetry.
[2016-08-31] MEDS: ACETAMINOPHEN 325 MG TABLET PO PRN (08:55)
[2016-08-31 09:03] VITALS: BP 166/76; PULSE 65; RESP 16; TEMP 96.6; O2SAT 95
[2016-08-31 11:20] VITALS: PULSE 65; RESP 16
[2016-08-31] MEDS: POLYETHYL.GLYCOL 3350 PACKET 17gm PO SCH (11:24)
[2016-08-31] MEDS: CYANOCOBALAMIN (B-12) 500mcg TABLET PO SCH (11:25)
[2016-08-31] MEDS: ENOXAPARIN 40 MG/0.4 ML INJECTION SQ SCH (11:25)
[2016-08-31] MEDS: THYROID 30 MG TABLET PO SCH (11:26)
[2016-08-31] MEDS: LANSOPRAZOLE PO SCH (11:27)
[2016-08-31] MEDS: CLOPIDOGREL 75 MG TABLET PO SCH (11:27)
[2016-08-31] MEDS: ASPIRIN *EC* 81mg TABLET PO SCH (11:38)
[2016-08-31] MEDS ORDERED: ATOR20TA PO (11:41)
[2016-08-31] MEDS ORDERED: CYAN500T2 PO (11:41)
[2016-08-31] MEDS ORDERED: ACET-2321 PO (11:41)
[2016-08-31] MEDS ORDERED: METO25TA6 PO (11:41)
[2016-08-31] MEDS ORDERED: NITR0.4T SL (11:41)
[2016-08-31] MEDS ORDERED: CLOP75TA PO (11:41)
--- NOTE | 2016-08-31 11:50 | PDOCECFAO ---
Admission Orders Admission Orders Admit to: Residential Allergies: Coded Allergies: No Known Allergies (Unverified , 08/26/16) Admitting Diagnosis Hypertroponinemia, St Depression Admitting Physician Laura Antonio MD Code Status Do Not Resuscitate Anticipated LOS: 30 days or less Rehab Potential: Fair Rehab Prognosis: Fair Diet: No Salt Added (low-fat) Wound/Incision Care: Not applicable Evaluations/Treat: PT, OT Residential Certification I certify that SNF services are required to be given on an Inpatient basis because of the patients need for group home care on a continuing basis for the condition(s) for which he/she received inpatient hospital services prior to his/her transfer to the SNF. SNF inpatient care is necessary for the following reasons C/P Assessment/Care, Wound Care/Assessment (monitor cardiac catheter site in right groin) Cardiac or Respiratory Arrest In Event of Arrest: Do Not Start CPR Additional Orders: Patient to see Dr. Garland in approximately one week and Dr. Ayala in 2 weeks. Has mild orthostatic hypotension with blood pressure often dropping 20-30 mm with position change. Drug-eluting stents placed in the mid and distal LAD on 08/28-Plavix/aspirin 6 months minimum LAURA ANTONIO MD Aug 31, 2016 11:50
--- NOTE | 2016-08-31 12:10 | DSPDOC ---
General Date Date DATE: 08/31/16 TIME: 11:50 Attending Physician Laura Antonio MD Admitting Physician Laura Antonio MD Consulting Physician Max Ayala MD Admitting Diagnosis hypertroponinemia, ST depression Discharge Diagnosis 1. Non-ST elevation OK 2. Multivessel coronary artery disease 3. Fall 4. Ventriculomegaly 5. Hypertension 6. Pulmonary hypertension 7. Macrocytic anemia 8. Chronic kidney disease, stage II Procedures Cardiac catheterization on 08/28/16 demonstratin. Three-vessel coronary artery disease as manifested by multiple significant occlusions in the LAD including a hazy probably thrombus 90% stenosis in the mid LAD, bifurcation location involving the origin of a smaller diagonal branch, a 70-75% stenosis of the obtuse marginal branch and a 98% occlusion of the mid RCA (a small codominant vessel). 2. Codominant left circumflex artery and RCA, although the former is much larger in size. 3. Proximal coronary artery calcification. 4. Normal LV systolic function with inferior wall hypokinesis. 5. Normal filling pressures. Normal hemodynamics Cardiac catheterization was followed by cardiac intervention with PTCA and stenting of the mid and distal LAD (with drug-eluting stents) and PTCA of the mid right coronary artery. Echocardiogram on 08/26 demonstratin. Normal cardiac chamber size. 2. Normal LV systolic function. EF 66% with regional wall motion abnormalities of coronary artery disease as described above. 3. Mild diastolic dysfunction. 4. Mild mitral regurgitation. 5. Moderate tricuspid regurgitation 6. Moderate pulmonary hypertension. 7. Normal central venous pressure. Laboratory Laboratory Tests Test 08/30/16 04:11 08/31/16 04:12 White Blood Count 7.1T/MM3 (4.5-11.0) Red Blood Count 2.55M/MM3 (4.50-5.90) Hemoglobin 9.4GM/DL (13.5-17.5) Hematocrit 27.1% (41-53) Mean Corpuscular Volume 106.3UM3 (80-100) Mean Corpuscular Hemoglobin 36.9UUG (26-34) Mean Corpuscular Hemoglobin Concent 34.7GM/DL (31-37) RDW Standard Deviation 45.8FL (36.9-50.2) Platelet Count 123T/MM3 (130-400) Mean Platelet Volume 10.3UM3 (9.4-12.4) Turbidity < 20 (0-20) < 20 (0-20) Sodium Level 142MEQ/L (134-144) 141MEQ/L (134-144) Potassium Level 4.2MEQ/L (3.6-5) 4.0MEQ/L (3.6-5) Chloride Level 107MEQ/L (98-107) 104MEQ/L (98-107) Carbon Dioxide Level 25MEQ/L (22-30) 28MEQ/L (22-30) Anion Gap 10MEQ/L (5-15) 9MEQ/L (5-15) Blood Urea Nitrogen 22.0MG/DL (9-20) 22.0MG/DL (9-20) Creatinine 1.0MG/DL (0.8-1.5) 1.0MG/DL (0.8-1.5) Glomerular Filtration Rate Calc 71 71 BUN/Creatinine Ratio 22RATIO (6-26) 22RATIO (6-26) Glucose Level 103MG/DL (75-110) 108MG/DL (75-110) Calculated Osmolality 276MOSM/KG (261-280) 275MOSM/KG (261-280) Calcium Level 9.0MG/DL (8.4-10.2) 9.2MG/DL (8.4-10.2) Phosphorus Level 3.7MG/DL (2.5-4.5) 4.0MG/DL (2.5-4.5) Icterus Index < 2 (0-7) < 2 (0-7) Albumin 3.1G/DL (3.5-5.0) 3.4G/DL (3.5-5.0) Chemistry Specimen Hemolysis < 15 (0-25) < 15 (0-25) On admission white count was 12.0, hemoglobin 11.3, MCV 107.2, and platelet count 151,000. D-dimer 3393. Sodium 146, BUN 42, creatinine 1.4, troponin 0.306 , liver enzymes normal. Peak troponin 1.39 on 07/26. Prolactin 9.5 on admission Vitamin B-12 362, folic acid 16.5 Radiology KUB on 08/26 demonstrated nonobstructive bowel gas pattern and a chronic appearing L4 compression fracture. Aortoiliac stent present. PA and lateral chest x-ray on 08/26 demonstrated no acute cardiopulmonary disease. Noncontrast CT of the head on admission demonstrated no evidence of acute traumatic injury and disproportionate ventricular dilation relative to mild atrophy raising question of normal pressure hydrocephalus. Changes of chronic microvascular ischemia were also noted. Cervical spine CT on 08/26 demonstrated no acute traumatic abnormality of the C- spine although multilevel degenerative changes were seen. CTA of the chest and aorta on 08/26 demonstrated no evidence of PE or dissection. History of Present Illness Patient is a 86 yr old male who resides at [facility]. It is reported that he fell out of bed this morning and struck his head. Following this he began vomiting and was sent to the ER for further evaluation and treatment. Patient denied chest pain or palpitations. Family described increasing confusion recently. ER evaluation included laboratory studies and radiology studies were performed. WBC count was found to be slightly about 12.0, RBCs 3.06 , hemoglobin 11.3, hematocrit 32.8, platelet count 151, neutrophils 86% with a percent bandemia. Sodium is 146, potassium 4.3, BUN 42, creatinine 1.4. D-dimer was found to be elevated at 3393. Initial troponin was elevated at 0.306. Twelve -lead EKG was performed showing some ST changes with questionable depression. A urinalysis was obtained showing 1+ protein, 3+ blood with 1+ bacteria. KUB and chest x-ray were both unremarkable. CT scan of the head did show ventricle dilatation, raising concern for normal pressure hydrocephalus. A CT of the cervical spine was negative for acute fracture. Vital signs reviewed, temperature 97.5, heart rate 104, respiration rate 16, blood pressure 126/61, room air saturations 95%. Review advanced directives and patient does have a active do not resuscitate. Hospital Course 08/26/16 Patient was admitted with a fall and non-ST elevation OK and subtle lateral ST segment depression on EKG. He was seen by Dr. Ayala and treatment with beta amy, statin, aspirin, and heparin drip initiated when troponin climbed further on repeat testing. Telemetry was initiated. CTA of the chest was obtained due to elevated d-dimer and was negative for dissection or PE. Patient was gently hydrated after dye load and cardiac catheterization scheduled for . Advanced directives with patient and daughter, he does wish to be a do not resuscitate 08/27/16 Patient is hemodynamically stable with no significant orthostatic drop on standing. He remains minimally symptomatic and troponin has peaked at 1.39. No arrhythmias evident. Continue heparin, beta amy, statin, and aspirin. Echocardiogram reveals moderate pulmonary hypertension with moderate TR and mild MR, mild diastolic dysfunction and ejection fraction 66%. Hypokinesis of lateral and inferior muhammad described. Tentatively scheduled for cardiac catheterization tomorrow. Hospitalization and increased confusion in patients with underlying dementia discussed with patient's daughters-increase natural light and getting out of the room recommended. Results of the CT with suggested ventriculomegaly and possible NPH discussed- daughters report they would not pursue surgical intervention and does not wish to pursue further evaluation. Continue physical therapy due to gait instability/weakness. 08/28/16 Asymptomatic bradycardia noted by nursing with heart rates into the 40s and occasionally upper 30s, Lopressor dose decreased although ischemia may be triggering factor. Continue heparin, beta amy, statin, and aspirin. Cardiac catheterization performed by Dr. Ayala demonstrating triple vessel disease with 90% mid LAD due to thrombus, 98% occlusion of the mid RCA, and 70- 75% stenosis of the obtuse marginal. Multiple lesions were reported in the LAD. The patient subsequently underwent angioplasty of the mid and distal LAD with placement of 2 drug-eluting stents in the LAD and angioplasty of the RCA lesion by Dr. Alonzo. Following procedures patient was transferred to the CCU for close observation. Plavix added to medical regimen. Metoprolol converted to labetalol. B low normal, macrocytic anemia present. Oral supplementation initiated. 08/28/16 Patient went for cardiac cath on 08/28 with GABRIELLA x 2 to the mid and distal LAD, [employer] to the RCA Bradycardia asymptomatic, ischemia may have been causing bradycardia as well, improved today, on labetalol 200 mg BID Continues on beta amy, statin, plavix and aspirin with heparin stopped. More hypertensive today with BP at times 180s systolic; continue labetalol converted back to metoprolol. Transferred out of ICU. 08/30/16 Generally stable, heart rate occasionally into the 50s but no significant bradycardia, remains asymptomatic. Mild elevation of blood pressure but other times low normal. 20-30 mm drop in blood pressure intermittently noted with standing. Stable to return to [facility] to continue physical therapy, facility unable to take patient today-discharge plan tomorrow. 08/31/16-discharge Mr. Patiño complains of pain in his legs and reports he is ready to get out of here. He denies chest pain or dyspnea. Daughter reports continued confusion intermittently but did not feel there didn't significant change compared to baseline. On examination there is mild decrease breath sounds at the left base but respirations are nonlabored and breath sounds are otherwise clear. Cardiac rhythm is regular. Stable for discharge at this time. To continue strengthening at [facility]. Asked to follow-up with Dr. Garland in approximately one week and Dr. Ayala in 2 weeks. Patient will require dual antiplatelet therapy for minimum of 6 months following placement of drug-eluting stents. Telemetry strips reviewed-sinus rhythm/sinus bradycardia with rates into the 50s but no lower. Discharged on aspirin, Plavix, atorvastatin, and metoprolol for cardiac indications. Additionally started on oral vitamin B-12. Throughout the hospitalization the patient had mild confusion with some nocturnal worsening consistent with sundowning. Suspect underlying dementia although formal evaluation not initiated during hospital stay. As previously noted the patient's daughters were not interested in pursuing evaluation of the ventriculomegaly for NPH. >30 minutes spent on patient care and discharge care coordination today on the date of discharge. --. Problems: (1) Non-ST elevation OK (NSTEMI) Status: Acute (2) CAD (coronary artery disease), [place] coronary artery Status: Chronic Assessment & Plan: Clot in LAD with extensive disease per preliminary catheter report Now s/p GABRIELLA x 2 to the mid and distal LAD, [employer] to the RCA on 08/28 (3) Fall Status: Acute (4) Cerebral ventriculomegaly Status: Chronic Assessment & Plan: Disproportionate ventricular dilatation-questionable NPH (5) Elevated d-dimer Status: Acute (6) HTN (hypertension) Status: Chronic (7) Pulmonary hypertension Status: Chronic Assessment & Plan: Moderate TR, PAP 59 on echo 08/26/69 (8) GERD (gastroesophageal reflux disease) Status: Chronic (9) Chronic kidney disease Status: Chronic Assessment & Plan: Stage II (10) Macrocytic anemia Status: Chronic Assessment & Plan: Low normal B-12 level (11) Hypernatremia Status: Resolved Assessment & Plan: Present on admission (12) History of thyroid cancer Status: Resolved (13) Former tobacco use Status: Resolved (14) Bradycardia Status: Resolved Assessment & Plan: Sinus bradycardia-ischemic versus medications, improved 08/29 , continued on labetalol without difficulty (15) Leukocytosis Status: Resolved Code Status Do Not Resuscitate Home Meds Active Scripts Cyanocobalamin (Vitamin B-12) (Vitamin B-12) 500 Mcg Tablet, 1000 MCG PO DAILY for low B-12, #30 TAB Prov:LAURA ANTONIO MD 08/31/16 Acetaminophen (Tylenol) 325 Mg Tablet, 325-650 MG PO Q5H Y for PAIN, #30 TAB Prov:LAURA ANTONIO MD 08/31/16 Metoprolol Tartrate (Metoprolol Tartrate) 25 Mg Tablet, 25 MG PO BIDWM for CAD, #60 TAB Prov:LAURA ANTONIO MD 08/31/16 Nitroglycerin (Nitrostat) 0.4 Mg Tablet, 0.4 MG SL Q5MIN Y for ANGINA, #25 TAB Prov:LAURA ANTONIO MD 08/31/16 Atorvastatin Calcium (Lipitor) 20 Mg Tablet, 20 MG PO HS for CAD, #30 TAB Prov:LAURA ANTONIO MD 08/31/16 Clopidogrel Bisulfate (Plavix) 75 Mg Tablet, 75 MG PO DAILY for CAD, #30 TAB Prov:LAURA ANTONIO MD 08/31/16 Reported Medications Oxycodone HCl/Acetaminophen (Oxycodone-Acetaminophen 5-325) 5-325 Tablet, 1 TAB PO TID Y for PAIN, TAB 08/26/16 Lansoprazole (Prevacid) 15 Mg Tab.rap.dr, 1 TAB PO DAILY, #30 TAB 2 Refills 08/26/16 Thyroid,Pork (Thompson Thyroid) 60 Mg Tablet, 1 TAB PO DAILY, #30 TAB 5 Refills 08/26/16 Polyethylene Glycol 3350 (Polyethylene Glycol 3350) 255 Gm Powder, 8.5 GM PO DAILY, #527 GM 08/26/16 Aspirin (Aspir 81) 81 Mg Tablet.dr, 1 TAB PO DAILY, #30 TAB 5 Refills 08/26/16 Discontinued Reported Medications Ibuprofen (Ibuprofen) 200 Mg Tablet, 3 TAB PO BID Y for PAIN, TAB 08/26/16 Nicotine (Nicoderm Cq) 1 Each Patch.td24, 1 PATCH TOP DAILY, #14 PATCH 08/26/16 Face to Face Encounter I met with patient and his daughter on the day of dismissal and discussed follow up appointments, medications, and safety plan. Discharge Disposition [facility] nursing Copies To 1: JONI ALONZO MD; ALTON GARLAND MD; MAX AYALA MD Documentation Requirements Chronic Kidney Disease Stage of CKD: Stage 2 GFR 60-89 Anemia Anemia Acuity: Chronic LAURA ANTONIO MD Aug 31, 2016 11:58
--- NOTE | 2016-08-31 12:10 | NUR ---
CM CM IN TO VISIT PT AND DAUGHTER. CM DISCUSSED DC ORDERS AND WHEN [facility] WOULD COME TO TRANSPORT PT BACK TO [facility]. DAUGHTER DENIES FURTHER NEEDS. PT AND DAUGHTER AWARE TO CALL CM SHOULD NEEDS ARISE.
--- NOTE | 2016-08-31 12:11 | NUR ---
CM DC TIME OUT COMPLETE ALL [facility] ORDERS WERE FAXED AND PAIGE LOZANO RN/GWENDOLYN AWARE TO CALL CM SHOULD NEEDS ARISE.
[2016-08-31 13:33] VITALS: BP 163/66; PULSE 60; RESP 18; TEMP 98
--- NOTE | 2016-08-31 14:24 | NUR ---
DISCHARGE PATIENT LEFT WITH TRANSPORTER FROM [facility]. PATIENT PACKET GIVEN TO TRANSPORTER WITH SCRIPT FOR PERCOCET INSIDE. PERSONAL BELONGINGS RETURNED AND IV DISCONTINUED.
== END 2016-08-31 14:24 | DRG 249 ==
LOC: ED 06:38 → EDHOLD 09:02 → SRG 09:42 → INTOOBSV 13:25 → OBSVTOIN 13:25 → CCU 08-27 13:25 → OBSVTOIN 08-27 13:25 → SRG 08-28 11:40 → CCU 08-28 11:40 → SRG 08-29 14:10
PROVIDERS: ADMIT Internal Medicine; ATTEND Internal Medicine
PROC: 02703EZ Dilation of Coronary Artery, One Artery with Two Intraluminal Devices, Percutaneous Approach (ICD-10-PCS; principal; 2016-08-28)
PROC: 02703ZZ Dilation of Coronary Artery, One Artery, Percutaneous Approach (ICD-10-PCS; 2016-08-28)
PROC: 4A023N7 Measurement of Cardiac Sampling and Pressure, Left Heart, Percutaneous Approach (ICD-10-PCS; 2016-08-28)
PROC: B2111ZZ Fluoroscopy of Multiple Coronary Arteries using Low Osmolar Contrast (ICD-10-PCS; 2016-08-28)
PROC: B2151ZZ Fluoroscopy of Left Heart using Low Osmolar Contrast (ICD-10-PCS; 2016-08-28)
DX: I21.4 Non-ST elevation (NSTEMI) myocardial infarction (principal); E87.0 Hyperosmolality and hypernatremia; G93.89 Other specified disorders of brain; D72.825 Bandemia; I12.9 Hypertensive chronic kidney disease with stage 1 through stage 4 chronic kidney disease, or unspecified chronic kidney disease; N18.2 Chronic kidney disease, stage 2 (mild); I25.10 Atherosclerotic heart disease of native coronary artery without angina pectoris; J44.9 Chronic obstructive pulmonary disease, unspecified; E86.0 Dehydration; Z66 Do not resuscitate; I27.2 Other secondary pulmonary hypertension; K21.9 Gastro-esophageal reflux disease without esophagitis; Z79.82 Long term (current) use of aspirin; Z87.891 Personal history of nicotine dependence
CPT/HCPCS: 36415; 51701; 80048; 80053; 80069; 81001; 82607; 82746; 83735; 84146; 84484; 85025; 85027; 85379; 85730; 92920; 93005; 93306; 93458; 99218

== ENCOUNTER → 2016-09-08 | Outpatient (CLI) | payer MEDICARE, BC ==
[~2016-09-08] MED LIST changes: +ACET-2321 PO; +ATOR20TA PO; +CLOP75TA PO; +CYAN500T2 PO; -IBUP-1724 PO; +METO25TA6 PO; -NICO1PAT49 TOP; +NITR0.4T SL; -OXYC5CAP3 PO
== END ==
LOC: LABNH.PM 00:33
PROVIDERS: ATTEND Family Medicine
DX: E03.9 Hypothyroidism, unspecified (principal)
CPT/HCPCS: 36415; 84443; P9604

== ENCOUNTER → 2016-09-22 | Outpatient (CLI) | payer MEDICARE, BC | LOC: LABNH.PM 00:59 | PROVIDERS: ATTEND Family Medicine | DX: E03.9 Hypothyroidism, unspecified (principal) | CPT/HCPCS: 36415; 84443; P9604 ==

== ENCOUNTER → 2016-09-23 | Outpatient (CLI) | payer MEDICARE, BC | LOC: LABNH.PM 00:29 | PROVIDERS: ATTEND Family Medicine | DX: M19.071 Primary osteoarthritis, right ankle and foot (principal) | CPT/HCPCS: 36415; 85652; 86431; P9604 ==

== ENCOUNTER → 2016-09-24 | Outpatient (CLI) | payer MEDICARE, BC | LOC: LABNH.PM 00:23 | PROVIDERS: ATTEND Family Medicine | DX: M19.071 Primary osteoarthritis, right ankle and foot (principal) | CPT/HCPCS: 36415; 86038; P9604 ==

== ENCOUNTER → 2016-09-25 | Outpatient (CLI) | payer MEDICARE, BC | LOC: LABNH.PM 00:06 | PROVIDERS: ATTEND Family Medicine | DX: Z53.8 Procedure and treatment not carried out for other reasons (principal) ==